=== PATIENT | male | born 1975 | race African-American/Black ===

== ENCOUNTER 2019-09-22 14:22 | Inpatient (IN) | payer BC, OTHER ==
[2019-09-22 18:56] VITALS: BMI 29.4
--- NOTE | 2019-09-22 21:17 | HP ---
"CIWA Score Nausea/Vomitin-No Nausea/No Vomiting Muscle Tremors: 4-Moderate,w/Arms Extend Anxiety: 0-No Anxiety, at Ease Agitation: 0-Normal Activity Paroxysmal Sweats: 3 (Increased facial moisture) Orientation: 0-Oriented Tacttile Disturbances: 0-None Auditory Disturbances: 0-None Visual Disturbances: 0-None Headache: 0-None Present CIWA-Ar Total Score: 7 - Admission Criteria OASAS Guidelines: Admission for Medically Managed Detox: Requires at least one of the followin. CIWA greater than 12 2. Seizures within the past 24 hours 3. Delirium tremens within the past 24 hours 4. Hallucinations within the past 24 hours 5. Acute intervention needed for co occurring medical disorder 6. Acute intervention needed for co occurring psychiatric disorder 7. Severe withdrawal that cannot be handled at a lower level of care (continued vomiting, continued diarrhea, abnormal vital signs) requiring intravenous medication and/or fluids 8. Patient presents the following: Acute intervention needed for co-occurring med or psych disorder (Bipolar-1; Schizo-affective; Depression. NICOLE: 0.024) Admission Criteria Met: Admission criteria met Admitting History and Physical - Smoking History Smoking history: Current every day smoker Have you smoked in the past 12 months: Yes Aproximately how many cigarettes per day: 20 - Alcohol/Substance Use Hx Alcohol Use: Yes (3-4 pint Vodka daily and two six packs of beer daily) Admission ROS S - HPI Chief Complaint: States wants to stop using. Allergies/Adverse Reactions: Allergies Allergy/AdvReac Type Severity Reaction Status Date / Time codeine [Codeine] Allergy Severe Hives Verified 01/12/15 13:03 risperidone [From Risperdal] Allergy Severe Swelling Verified 01/12/15 13:03 trazodone AdvReac Severe priapism Verified 01/12/15 13:03 History of Present Illness: 43 yo presents w/ alcohol withdrawal seeking detox. UTox:+ EMELYN/BZO/FEN NICOLE: 0.024 Denies seizures, blackouts, or overdoses. BASED ON ASSESSMENT, PATIENT NEEDS MORE THAN 2 NIGHTS TREATMENT. Alcohol use began at age 14. Drinks 2 pints vodka daily in last 1-2 weeks. Before that was drinking but was drinking less vodka and more beer. Opioid use once / month. Nasal. No Narcan kit at home. Cocaine use began at age 33. Currently smokes $20. Denies benzo use. Thinks may have been cut w/ the cocaine use. Nicotine use began at age 14. Currently smokes 1 PPD PMHx: GERD; MHHx: Bipolar-1; Schizo-affective; Depression. Pressured speech. States just move back to [place], from [place]. No current Psychiatrist. States saw Psych at [facility] on 09/11/2019 and was given prescriptions. Denies thought of harming self or others. SHx: Homeless. Unemployed. Denies legal issues. Search Terms: Eliezer Andrea, 1975 Search Date: 09/22/2019 09:12:02 PM The Drug Utilization Report below displays all of the controlled substance prescriptions, if any, that your patient has filled in the last twelve months. The information displayed on this report is compiled from pharmacy submissions to the Department, and accurately reflects the information as submitted by the pharmacies. This report was requested by: Ana Paula Irizarry | Reference #: [id number] There are no results for the search terms that you entered. Exam Limitations: No Limitations - Ebola screening Have you traveled outside of the country in the last 21 days: No Have you had contact with anyone from an Ebola affected area: No Have you been sick,other than usual withdrawal symptoms: No Do you have a fever: No - Review of Systems Constitutional: Chills, Changes in sleep (Difficulty falling and staying asleep) EENT: reports: No Symptoms Reported Respiratory: reports: No Symptoms reported Cardiac: reports: No Symptoms Reported GI: reports: Indigestion (Occ indigestion - takes protonix 40 mg) : reports: Other (3-4x/night urination) Musculoskeletal: reports: No Symptoms Reported Integumentary: reports: No Symptoms Reported Neuro: reports: Tremors Endocrine: reports: Increased Thirst Hematology: reports: No Symptoms Reported Psychiatric: reports: Orientated x3, Depressed ( Denies thought of harming self or others.), other (Sleepy) Patient History - Patient Medical History Hx Anemia: No Hx Asthma: No Hx Chronic Obstructive Pulmonary Disease (COPD): No Hx Cancer: No Hx Cardiac Disorders: No Hx Congestive Heart Failure: No Hx Hypertension: No Hx Hypercholesterolemia: No Hx Pacemaker: No HX Cerebrovascular Accident: No Hx Seizures: No Hx Dementia: No Hx Diabetes: No Hx Gastrointestinal Disorders: Yes (GERD) Hx Liver Disease: No Hx Genitourinary Disorders: No Hx Sexually Transmitted Disorders: No Hx Renal Disease (ESRD): No Hx Thyroid Disease: No Hx Human Immunodeficiency Virus (HIV): No Hx Hepatitis C: No Hx Depression: No Hx Suicide Attempt: No Hx Bipolar Disorder: Yes Hx Schizophrenia: No - Patient Surgical History Past Surgical History: Yes Hx Neurologic Surgery: No Hx Cataract Extraction: No Hx Cardiac Surgery: No Hx Lung Surgery: No Hx Breast Surgery: No Hx Breast Biopsy: No Hx Abdominal Surgery: No Hx Appendectomy: No Hx Cholecystectomy: No Hx Genitourinary Surgery: No Hx Section: No Hx Orthopedic Surgery: Yes (FX left arm at 9yo) Anesthesia Reaction: No - PPD History Previous Implant?: Yes Documented Results: Negative w/proof Implanted On Prior R Admission?: Yes PPD to be Administered?: Yes - Smoking Cessation Smoking history: Current every day smoker Have you smoked in the past 12 months: Yes Aproximately how many cigarettes per day: 20 Hx Chewing Tobacco Use: No Initiated information on smoking cessation: Yes 'Breaking Loose' booklet given: 09/22/19 - Substance & Tx. History Hx Alcohol Use: Yes Hx Substance Use: Yes Substance Use Type: Alcohol, Cocaine, Opiates (Fentanyl) Hx Substance Use Treatment: Yes (detox, rehabs) - Substances abused Alcohol Substance route: Oral Frequency: Daily Amount used: 1 beer /2 pints of vodka Age of first use: 14 Date of last use: 09/22/19 Cocaine Substance route: Inhalation Frequency: Daily Amount used: 100 dollars Age of first use: 32 Date of last use: 09/21/19 Admission Physical Exam BHS - Vital Signs Vital Signs: Vital Signs - 24 hr 09/22/19 09/22/19 18:36 19:15 Temperature 98.0 F 98.0 F Pulse Rate 83 83 Respiratory 14 14 Rate Blood Pressure 132/76 132/76 - Physical General Appearance: Yes: Nourished, Alcohol on Breath (nicole: 0.024), Sweating ( Increased facial moisture) HEENTM: Yes: EOMI, Hearing grossly Normal, Normocephalic, Normal Voice, BRAD ( Pupils = 1 mm), Pharynx Normal Respiratory: Yes: Lungs Clear, Normal Breath Sounds, No Respiratory Distress Neck: Yes: No masses,lesions,Nodules, Supple Breast: Yes: Breast Exam Deferred Cardiology: Yes: Regular Rhythm, Regular Rate, S1, S2 Abdominal: Yes: Non Tender, Soft, Increased Bowel Sounds Genitourinary: Yes: Nocturia (2-3 x/night Denies burning/ pain or blood) Back: Yes: Normal Inspection Musculoskeletal: Yes: full range of Motion, Gait Steady, Other (Frank hammer toes) Extremities: Yes: Normal Capillary Refill, Pedal Edema (Frank 2+ pitting edema toes to ankle. 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 NML intact, Fully Oriented, Motor Strength 5/5, Other (Falls asleep but easily arousable.) Integumentary: Yes: Normal Color, Warm, Moist (Increased facial moisture) Lymphatic: Yes: Within Normal Limits - Diagnostic (1) Alcohol dependence with withdrawal, uncomplicated Current Visit: Yes Status: Acute (2) Cocaine dependence Current Visit: Yes Status: Chronic (3) GERD (gastroesophageal reflux disease) Current Visit: Yes Status: Chronic Qualifiers: Esophagitis presence: without esophagitis Qualified Code(s): K21.9 - Gastro -esophageal reflux disease without esophagitis (4) Nicotine dependence Current Visit: Yes Status: Chronic Qualifiers: Nicotine product type: cigarettes Substance use status: uncomplicated Qualified Code(s): F17.210 - Nicotine dependence, cigarettes, uncomplicated Cleared for Admission S - Detox or Rehab [facility] Level of Care: Medically Managed Detox Regimen/Protocol: Librium Claeared for Rehab Admission: No Breathalyzer - Breathalyzer Breathalyzer: 0.024 Urine Drug Screen - Test Device Lot number: [id number] Expiration date: 07/16/21 - Control Is test valid?: Yes - Results Drug screen NEGATIVE: No Urine drug screen results: EMELYN-Cocaine, FEN-Fentanyl, BZO-Benzodiazepines Inpatient Rehab Admission - Rehab Decision to Admit Inpatient rehab admission?: No"
[2019-09-23] MEDS ORDERED: chlordiazePOXIDE HCL 10 MG CAPSULE PO PRN (05:08)
[2019-09-23] MEDS ORDERED: guaiFENesin 200 MG/10 ML 10 ML UNIT-DOSE CUPS PO PRN (05:08)
[2019-09-23] MEDS ORDERED: MELATONIN 5 MG TABLETS PO PRN (05:08)
[2019-09-23] MEDS ORDERED: BISMUTH SUBSALICYLATE 524 MG/30 ML UD PO PRN (05:08)
[2019-09-23] MEDS ORDERED: MAGNESIUM HYDROX 2400MG/30ML ORAL SUSPENSION 30 ML CUP PO PRN (05:08)
[2019-09-23] MEDS ORDERED: MAGNESIUM CITRATE 300 ML BOTTLE PO PRN (05:08)
[2019-09-23] MEDS ORDERED: MENTHOL/PHENOL 1 EACH UD MM PRN (05:08)
[2019-09-23] MEDS ORDERED: ACETAMINOPHEN 325 MG TABLET (FP) PO PRN ×2 (05:08)
[2019-09-23] MEDS ORDERED: MAG HYDROX/AL HYDROX/SIMETH 30 ML UNIT-DOSE CUP PO PRN (05:08)
[2019-09-23] MEDS ORDERED: NICOTINE POLACRILEX 2 MG GUM BUC PRN (05:08)
[2019-09-23] MEDS ORDERED: IBUPROFEN 400 MG TABLET (FP) PO PRN (05:08)
[2019-09-23] MEDS: chlordiazePOXIDE HCL 25 MG CAPSULE PO SCH ×3 (06:26→22:34)
[2019-09-23] MEDS: PRENATAL VITAMINS W/ FOLIC ACID TABLET (FP) PO SCH (10:48)
[2019-09-23] MEDS: PANTOPRAZOLE 40 MG TABLET PO SCH (10:48)
[2019-09-23] MEDS: NICOTINE 14 MG/24 HOURS TOPICAL PATCH TD SCH (10:49)
--- NOTE | 2019-09-23 10:51 | CONSULT ---
[facility] Psychiatric Consult - Data Date of interview: 09/23/19 Admission source: [facility] Identifying data: Patient is a 43 year old single male, without children, unemployed, homeless, and is supported by [facility]. This is one of multiple admissions for patient. Patient admitted to for alcohol and cocaine dependence. Substance Abuse History: Smoking Cessation. Smoking history: Current every day smoker. Have you smoked in the past 12 months: Yes. Aproximately how many cigarettes per day: 20. Hx Chewing Tobacco Use: No. Initiated information on smoking cessation: Yes. 'Breaking Loose' booklet given: 09/22/19. - Substance & Tx. History. Hx Alcohol Use: Yes. Hx Substance Use: Yes. Substance Use Type : Alcohol, Cocaine, Opiates (Fentanyl). Hx Substance Use Treatment: Yes (detox , rehabs). - Substances abused. Alcohol. Substance route: Oral. Frequency : Daily. Amount used: 1 beer /2 pints of vodka. Age of first use: 14. Date of last use: 09/22/19. Cocaine. Substance route: Inhalation. Frequency: Daily. Amount used: 100 dollars. Age of first use: 32. Date of last use: Medical History: GERD, FX left arm at 9yo Psychiatric History: Patient's first psychiatric contact was in 1998 after onset disturbances of auditory hallucinations. He was admitted to a psychiatric facility (can't recall) and was diagnosed with Bipolar disorder. Patient denies being diagonsed with schizophrenia. Mr. Andrea is unable to provide a cohesive psychiatric history. He reports several psychiatric hospitalizations at various institutions including but not limited to [facility] and [facility]. Mr. Andrea states that he receives psychotropic medications from various emergency departments in [facility]. Claims to have received a prescription of topamax 100mg BID + Zyprexa 10mg BID + Seroquel 200mg HS last month and brought his medications to the facility. Reports most recently taking his medications two days ago. [facility] drug pharmacy contated at [phone] but pharmacy is closed on tuesday. Previous notes reviewed and noted that patient patient has been prescribed zyprexa 20mg HS. Patient denies history of suicide attempt. At present patient denies history of auditory/visual hallucinations, suicidal/ homicidal ideation. Physical/Sexual Abuse/Trauma History: Not discussed. Mental Status Exam - Mental Status Exam Alert and Oriented to: Time, Place, Person Cognitive Function: Good Patient Appearance: Well Groomed Mood: Withdrawn Affect: Flat Patient Behavior: Fatigued, Cooperative Speech Pattern: Appropriate (has a speak disability. ) Voice Loudness: Normal Thought Process: Goal Oriented Thought Disorder: Not Present Hallucinations: Denies Suicidal Ideation: Denies Homicidal Ideation: Denies Insight/Judgement: Poor Sleep: Poorly Appetite: Fair Muscle strength/Tone: Normal Gait/Station: Normal Psychiatric Findings - Problem List ([place] 1, 2,3) (1) Schizoaffective disorder Status: Chronic (2) Alcohol dependence with withdrawal, uncomplicated Status: Chronic (3) Cocaine dependence Status: Chronic (4) Nicotine dependence Status: Chronic Qualifiers: Nicotine product type: cigarettes Substance use status: uncomplicated Qualified Code(s): F17.210 - Nicotine dependence, cigarettes, uncomplicated (5) Bipolar disorder Status: Suspected - Initial Treatment Plan Initial Treatment Plan: Psychoeducation provided. Detoxification in progress. Will order Zyprexa 10mg BID + Topamax 100mg BID + Seroquel 100mg (reduced dose due to risk of oversedation). Benefits and side effects discussed. Verbal consent given.
[2019-09-23 12:12] LABS: HEMATOCRIT 38.6 % (35.4-49); HEMOGLOBIN 12.8 GM/dL (11.7-16.9); MCH 27.3 pg (25.7-33.7); MCHC 33.1 g/dl (32.0-35.9); MEAN CELL VOLUME 82.5 fl (80-96); MEAN PLT VOLUME 9.8 fl (7.5-11.1); PLATELET COUNT 216 K/MM3 (134-434); RBC 4.68 M/mm3 (4.00-5.60); RDW 15.9 % (11.9-15.9); WHITE BLOOD COUNT 4.4 K/mm3 (4.0-10.0)
[2019-09-23 12:21] LABS: ALBUMIN 3.3 g/dl (3.4-5.0); BILIRUBIN,TOTAL 0.8 mg/dL (0.2-1); BLOOD UREA NITROGEN 14.1 mg/dL (7-18); CALCIUM 8.8 mg/dL (8.5-10.1); CREATININE 0.9 mg/dL (0.55-1.3); POTASSIUM 3.5 mmol/L (3.5-5.1)
--- NOTE | 2019-09-23 21:49 | PN ---
[facility] CIWA - CIWA Score Nausea/Vomitin-No Nausea/No Vomiting Muscle Tremors: 2 Anxiety: 3 Agitation: 2 Paroxysmal Sweats: 2 Orientation: 0-Oriented Tacttile Disturbances: 2-Mild Itch/Numbness/Burn Auditory Disturbances: 0-None Visual Disturbances: 0-None Headache: 0-None Present CIWA-Ar Total Score: 11 BHS Progress Note (SOAP) Subjective: Etoh withdrawal sx Patient presents with c/o shakes, sweating, anxiety, interrupted sleep and numbness/tingling to feet Objective: 09/23/19 21:46 Laboratory Tests 09/23/19 09/23/19 09/23/19 07:20 07:20 07:20 WBC 4.4 RBC 4.68 Hgb 12.8 Hct 38.6 MCV 82.5 MCH 27.3 MCHC 33.1 RDW 15.9 Plt Count 216 D MPV 9.8 Sodium 139 Potassium 3.5 Chloride 104 Carbon Dioxide 28 Anion Gap 7 L BUN 14.1 Creatinine 0.9 Est GFR (CKD-EPI)AfAm 120.81 Est GFR (CKD-EPI)NonAf 104.24 Random Glucose 113 H Calcium 8.8 Total Bilirubin 0.8 AST 40 H ALT 51 Alkaline Phosphatase 60 Total Protein 7.0 Albumin 3.3 L RPR Titer Nonreactive Vital Signs Temperature 97.9 F 09/23/19 21:29 Pulse Rate 70 09/23/19 21:29 Respiratory Rate 18 09/23/19 21:29 Blood Pressure 115/68 09/23/19 21:29 O2 Sat by Pulse Oximetry (%) PE alert and oriented x 3 skin warm, moisture to trunk car s1s2 resp cta bl ext amb with limp due to b/l hammertoes, +tremors anxious tired Assessment: 09/23/19 21:47 ETOH withdrawal sx B/L hammertoes Plan: continue detox encourage oral fluids cane for amb support
[2019-09-23] MEDS: QUEtiapine FUMARATE 100 MG TABLET (FP) PO SCH (22:34)
[2019-09-23] MEDS: THIAMINE HCL 100 MG TABLET (FP) PO SCH (22:34)
[2019-09-23] MEDS: OLANZapine 10 MG TABLET PO SCH (22:40)
[2019-09-24] MEDS: TOPIRAMATE 100 MG TABLET PO SCH ×3 (00:08→21:26)
[2019-09-24] MEDS: chlordiazePOXIDE 5 MG CAPSULE PO SCH ×3 (06:10→21:26)
[2019-09-24] MEDS: PANTOPRAZOLE 40 MG TABLET PO SCH (10:10)
[2019-09-24] MEDS: NICOTINE 14 MG/24 HOURS TOPICAL PATCH TD SCH (10:10)
[2019-09-24] MEDS: PRENATAL VITAMINS W/ FOLIC ACID TABLET (FP) PO SCH (10:10)
--- NOTE | 2019-09-24 13:41 | PN ---
S CIWA - CIWA Score Nausea/Vomitin-No Nausea/No Vomiting Muscle Tremors: 3 Anxiety: 2 Agitation: 2 Paroxysmal Sweats: No Perspiration Orientation: 0-Oriented Tacttile Disturbances: 0-None Auditory Disturbances: 0-None Visual Disturbances: 0-None Headache: 0-None Present CIWA-Ar Total Score: 7 BHS Progress Note (SOAP) Subjective: feeling better some sweats interrupted sleep Objective: 09/24/19 13:40 Vital Signs Temperature 98.6 F 09/24/19 12:36 Pulse Rate 78 09/24/19 12:36 Respiratory Rate 09/24/19 12:36 Blood Pressure 119/69 09/24/19 12:36 O2 Sat by Pulse Oximetry (%) Laboratory Tests 09/23/19 09/23/19 09/23/19 07:20 07:20 07:20 WBC 4.4 RBC 4.68 Hgb 12.8 Hct 38.6 MCV 82.5 MCH 27.3 MCHC 33.1 RDW 15.9 Plt Count 216 D MPV 9.8 Sodium 139 Potassium 3.5 Chloride 104 Carbon Dioxide 28 Anion Gap 7 L BUN 14.1 Creatinine 0.9 Est GFR (CKD-EPI)AfAm 120.81 Est GFR (CKD-EPI)NonAf 104.24 Random Glucose 113 H Calcium 8.8 Total Bilirubin 0.8 AST 40 H ALT 51 Alkaline Phosphatase 60 Total Protein 7.0 Albumin 3.3 L RPR Titer Nonreactive labs noted aaox3 ambulating no acute distress Assessment: 09/24/19 13:41 mild withdrawals Plan: continue detox
[2019-09-24] MEDS: OLANZapine 10 MG TABLET PO SCH ×2 (14:17→21:26)
[2019-09-24] MEDS: QUEtiapine FUMARATE 100 MG TABLET (FP) PO SCH (21:26)
[2019-09-24] MEDS: THIAMINE HCL 100 MG TABLET (FP) PO SCH (21:26)
[2019-09-24 22:11] LABS: PH,URINE 8.5 (5.0-8.0); URINE APPEARANCE TURBID; URINE BILIRUBIN NEGATIVE (NEGATIVE); URINE COLOR YELLOW; URINE GLUCOSE (UA) NEGATIVE (NEGATIVE); URINE KETONE NEGATIVE (NEGATIVE); URINE LEUK ESTERASE NEGATIVE (NEGATIVE); URINE NITRITE NEGATIVE (NEGATIVE); URINE PROTEIN NEGATIVE (NEGATIVE)
[2019-09-25] MEDS ORDERED: chlordiazePOXIDE HCL 10 MG CAPSULE PO PRN
[2019-09-25] MEDS: chlordiazePOXIDE HCL 10 MG CAPSULE PO SCH ×3 (05:51→21:45)
[2019-09-25] MEDS: OLANZapine 10 MG TABLET PO SCH ×2 (10:20→21:45)
[2019-09-25] MEDS: PANTOPRAZOLE 40 MG TABLET PO SCH (10:20)
[2019-09-25] MEDS: NICOTINE 14 MG/24 HOURS TOPICAL PATCH TD SCH (10:20)
[2019-09-25] MEDS: TOPIRAMATE 100 MG TABLET PO SCH ×2 (10:20→21:45)
[2019-09-25] MEDS: PRENATAL VITAMINS W/ FOLIC ACID TABLET (FP) PO SCH (10:20)
--- NOTE | 2019-09-25 11:39 | PN ---
S CIWA - CIWA Score Nausea/Vomitin-No Nausea/No Vomiting Muscle Tremors: None Anxiety: 1-Mildly Anxious Agitation: 1-Slight > Activity Paroxysmal Sweats: No Perspiration Orientation: 0-Oriented Tacttile Disturbances: 0-None Auditory Disturbances: 0-None Visual Disturbances: 0-None Headache: 0-None Present CIWA-Ar Total Score: 2 BHS Progress Note (SOAP) Subjective: feeling better little sweats Objective: 09/25/19 11:39 Vital Signs Temperature 97.9 F 09/25/19 09:03 Pulse Rate 82 09/25/19 09:03 Respiratory Rate 17 09/25/19 09:03 Blood Pressure 116/61 09/25/19 09:03 O2 Sat by Pulse Oximetry (%) aaox3 ambulating no acute distress Assessment: 09/25/19 11:39 mild withdrawals Plan: continue detox d/c in am
--- NOTE | 2019-09-25 14:54 | EKG ---
Test Reason : Blood Pressure : / mmHG Vent. Rate : 075 BPM Atrial Rate : 075 BPM P-R Int : 160 ms QRS Dur : 096 ms QT Int : 368 ms P-R-T Axes : 031 -27 017 degrees QTc Int : 410 ms NORMAL SINUS RHYTHM NORMAL ECG NO PREVIOUS ECGS AVAILABLE Confirmed by Juan Baldwin MD ([id number]) on 09/25/2019 2:54:16 PM Referred By: Noé Reeves Confirmed By:Juan Baldwin MD
[2019-09-25] MEDS: QUEtiapine FUMARATE 100 MG TABLET (FP) PO SCH (21:45)
[2019-09-25] MEDS: THIAMINE HCL 100 MG TABLET (FP) PO SCH (21:45)
[2019-09-26] MEDS ORDERED: chlordiazePOXIDE HCL 10 MG CAPSULE PO ONE (05:00)
--- NOTE | 2019-09-26 09:36 | DS ---
[facility] Detox Discharge Summary Admission Date: 09/22/19 Discharge Date: 09/26/19 - History Present History: Alcohol Dependence, Cocaine Dependence - Physical Exam Results Vital Signs: Vital Signs Temperature 97.7 F 09/26/19 06:53 Pulse Rate 66 09/26/19 06:53 Respiratory Rate 18 09/26/19 06:53 Blood Pressure 101/65 09/26/19 06:53 O2 Sat by Pulse Oximetry (%) Pertinent Admission Physical Exam Findings: Vital Signs Temperature 97.7 F 09/26/19 06:53 Pulse Rate 66 09/26/19 06:53 Respiratory Rate 18 09/26/19 06:53 Blood Pressure 101/65 09/26/19 06:53 O2 Sat by Pulse Oximetry (%) Laboratory Tests 09/23/19 09/23/19 09/23/19 07:20 07:20 07:20 WBC 4.4 RBC 4.68 Hgb 12.8 Hct 38.6 MCV 82.5 MCH 27.3 MCHC 33.1 RDW 15.9 Plt Count 216 D MPV 9.8 Sodium 139 Potassium 3.5 Chloride 104 Carbon Dioxide 28 Anion Gap 7 L BUN 14.1 Creatinine 0.9 Est GFR (CKD-EPI)AfAm 120.81 Est GFR (CKD-EPI)NonAf 104.24 Random Glucose 113 H Calcium 8.8 Total Bilirubin 0.8 AST 40 H ALT 51 Alkaline Phosphatase 60 Total Protein 7.0 Albumin 3.3 L Urine Color Urine Appearance Urine pH Ur Specific [place] Urine Protein Urine Glucose (UA) Urine Ketones Urine Blood Urine Nitrite Urine Bilirubin Urine Urobilinogen Ur Leukocyte Esterase RPR Titer Nonreactive 09/24/19 16:28 WBC RBC Hgb Hct MCV MCH MCHC RDW Plt Count MPV Sodium Potassium Chloride Carbon Dioxide Anion Gap BUN Creatinine Est GFR (CKD-EPI)AfAm Est GFR (CKD-EPI)NonAf Random Glucose Calcium Total Bilirubin AST ALT Alkaline Phosphatase Total Protein Albumin Urine Color Yellow Urine Appearance Turbid Urine pH 8.5 H D Ur Specific [place] 1.020 Urine Protein Negative Urine Glucose (UA) Negative Urine Ketones Negative Urine Blood Negative Urine Nitrite Negative Urine Bilirubin Negative Urine Urobilinogen 1.0 Ur Leukocyte Esterase Negative RPR Titer aaox3 ambulating no acute distress lungs CTA - Treatment Hospital Course: Detox Protocol Followed, Detoxed Safely, Responded well, Discharged Condition Good, Rehab Referral Accepted - Medication Discharge Medications: Ambulatory Orders Olanzapine [Zyprexa] 10 mg PO BID 01/12/15 Quetiapine Fumarate [Seroquel -] 200 mg PO HS 09/22/19 Topiramate 100 mg PO BID 09/22/19 - Diagnosis (1) Alcohol dependence with withdrawal, uncomplicated Current Visit: Yes Status: Chronic (2) Cocaine dependence Current Visit: Yes Status: Chronic (3) GERD (gastroesophageal reflux disease) Current Visit: Yes Status: Chronic Qualifiers: Esophagitis presence: without esophagitis Qualified Code(s): K21.9 - Gastro -esophageal reflux disease without esophagitis (4) Nicotine dependence Current Visit: Yes Status: Chronic Qualifiers: Nicotine product type: cigarettes Substance use status: uncomplicated Qualified Code(s): F17.210 - Nicotine dependence, cigarettes, uncomplicated (5) Schizoaffective disorder Current Visit: Yes Status: Chronic (6) Bipolar disorder Current Visit: Yes Status: Suspected (7) Cocaine abuse Current Visit: Yes Status: Chronic (8) Bipolar disorder Current Visit: No Status: Chronic - AMA Did Patient Leave Against Medical Advice: No
[2019-09-26 10:17] VITALS: BP 120/77; PULSE 59; TEMP 98.1
[2019-09-26] MEDS: OLANZapine 10 MG TABLET PO SCH (10:26)
[2019-09-26] MEDS: PANTOPRAZOLE 40 MG TABLET PO SCH (10:26)
[2019-09-26] MEDS: NICOTINE 14 MG/24 HOURS TOPICAL PATCH TD SCH (10:26)
[2019-09-26] MEDS: PRENATAL VITAMINS W/ FOLIC ACID TABLET (FP) PO SCH (10:27)
[2019-09-26] MEDS: TOPIRAMATE 100 MG TABLET PO SCH (10:27)
== END 2019-09-26 12:37 | disposition other institution (70) | DRG 774 ==
LOC: YASAS 14:22 → Y6N 23:33
PROVIDERS: ADMIT Allergy & Immunology; ATTEND Allergy & Immunology
PROC: HZ2ZZZZ Detoxification Services for Substance Abuse Treatment (ICD-10-PCS; principal; 2019-09-22)
DX: F10.230 Alcohol dependence with withdrawal, uncomplicated (principal); F14.20 Cocaine dependence, uncomplicated; F17.210 Nicotine dependence, cigarettes, uncomplicated; F25.9 Schizoaffective disorder, unspecified; F31.9 Bipolar disorder, unspecified; K21.9 Gastro-esophageal reflux disease without esophagitis; M20.42 Other hammer toe(s) (acquired), left foot; M20.41 Other hammer toe(s) (acquired), right foot; Z88.5 Allergy status to narcotic agent; Z88.8 Allergy status to other drugs, medicaments and biological substances; Z56.0 Unemployment, unspecified; Z59.0 Homelessness
CPT/HCPCS: 36415; 80053; 81003; 85027; 86593; 93005; 93010

== ENCOUNTER 2019-09-26 12:51 | Inpatient (IN) | payer OTHER ==
--- NOTE | 2019-09-26 14:24 | HP ---
[facility] Rehab Assess/Revision - Vital signs Vital Signs: Vital Signs Period Temp Pulse Resp BP Sys/Gallardo Pulse Ox Last 24 Hr 98.2 F 88 18 116/69 Inpatient Rehab Admission - Rehab Decision to Admit Inpatient rehab admission?: Yes - Initial Determination Are CD services needed?: Yes Free of communicable disease: Yes Not in need of hospitalization: Yes - Rehab Admission Criteria Previous failed treatment: Yes Poor recovery environment: Yes Comorbidities: Yes Lacks judgement: No Patient is meeting Inpatient Rehab admission criteria:: Yes
[2019-09-26] MEDS ORDERED: MAGNESIUM HYDROX 2400MG/30ML ORAL SUSPENSION 30 ML CUP PO PRN (15:50)
[2019-09-26] MEDS ORDERED: P-EPHED 60MG/TRIPROLIDI 2.5MG TABLET PO PRN (15:50)
[2019-09-26] MEDS ORDERED: guaiFENesin 200 MG/10 ML 10 ML UNIT-DOSE CUPS PO PRN (15:50)
[2019-09-26] MEDS ORDERED: ACETAMINOPHEN 325 MG TABLET (FP) PO PRN (15:50)
[2019-09-26] MEDS ORDERED: IBUPROFEN 400 MG TABLET (FP) PO PRN (15:50)
[2019-09-26] MEDS ORDERED: MENTHOL/PHENOL 1 EACH UD MM PRN (15:50)
[2019-09-26] MEDS ORDERED: MAGNESIUM CITRATE 300 ML BOTTLE PO PRN (15:50)
[2019-09-26] MEDS ORDERED: MAG HYDROX/AL HYDROX/SIMETH 30 ML UNIT-DOSE CUP PO PRN (15:50)
[2019-09-26] MEDS: THIAMINE HCL 100 MG TABLET (FP) PO SCH (21:09)
[2019-09-26] MEDS: TOPIRAMATE 100 MG TABLET PO SCH (21:09)
[2019-09-26] MEDS: MELATONIN 5 MG TABLETS PO PRN (21:09)
[2019-09-27] MEDS: NICOTINE 14 MG/24 HOURS TOPICAL PATCH TD SCH (09:43)
[2019-09-27] MEDS: PRENATAL VITAMINS W/ FOLIC ACID TABLET (FP) PO SCH (09:43)
[2019-09-27] MEDS: TOPIRAMATE 100 MG TABLET PO SCH ×2 (09:43→21:26)
[2019-09-27] MEDS: THIAMINE HCL 100 MG TABLET (FP) PO SCH (21:26)
[2019-09-27] MEDS: MELATONIN 5 MG TABLETS PO PRN (21:27)
[2019-09-28] MEDS: TOPIRAMATE 100 MG TABLET PO SCH ×2 (09:33→21:14)
[2019-09-28] MEDS: PRENATAL VITAMINS W/ FOLIC ACID TABLET (FP) PO SCH (09:33)
[2019-09-28] MEDS: OLANZapine 10 MG TABLET PO SCH ×2 (09:34→21:14)
[2019-09-28] MEDS: NICOTINE 14 MG/24 HOURS TOPICAL PATCH TD SCH (10:09)
[2019-09-28] MEDS ORDERED: PANTOPRAZOLE 40 MG TABLET PO ONE (12:54)
[2019-09-28] MEDS: MELATONIN 5 MG TABLETS PO PRN (21:14)
[2019-09-28] MEDS: THIAMINE HCL 100 MG TABLET (FP) PO SCH (21:14)
[2019-09-28] MEDS: QUEtiapine FUMARATE 100 MG TABLET (FP) PO SCH (21:15)
[2019-09-29] MEDS: TOPIRAMATE 100 MG TABLET PO SCH ×2 (09:40→21:27)
[2019-09-29] MEDS: PANTOPRAZOLE 40 MG TABLET PO SCH (09:40)
[2019-09-29] MEDS: NICOTINE 14 MG/24 HOURS TOPICAL PATCH TD SCH (09:40)
[2019-09-29] MEDS: OLANZapine 10 MG TABLET PO SCH ×2 (09:40→21:27)
[2019-09-29] MEDS: PRENATAL VITAMINS W/ FOLIC ACID TABLET (FP) PO SCH (09:40)
[2019-09-29] MEDS: MELATONIN 5 MG TABLETS PO PRN (21:27)
[2019-09-29] MEDS: THIAMINE HCL 100 MG TABLET (FP) PO SCH (21:27)
[2019-09-29] MEDS: QUEtiapine FUMARATE 100 MG TABLET (FP) PO SCH (21:27)
[2019-09-30] MEDS: PANTOPRAZOLE 40 MG TABLET PO SCH (09:45)
[2019-09-30] MEDS: NICOTINE 14 MG/24 HOURS TOPICAL PATCH TD SCH (09:45)
[2019-09-30] MEDS: PRENATAL VITAMINS W/ FOLIC ACID TABLET (FP) PO SCH (09:45)
[2019-09-30] MEDS: NICOTINE POLACRILEX 2 MG GUM BUC PRN ×2 (09:45→21:16)
[2019-09-30] MEDS: TOPIRAMATE 100 MG TABLET PO SCH ×2 (09:45→21:15)
[2019-09-30] MEDS: OLANZapine 10 MG TABLET PO SCH ×2 (09:45→21:15)
[2019-09-30] MEDS: MELATONIN 5 MG TABLETS PO PRN (21:15)
[2019-09-30] MEDS: THIAMINE HCL 100 MG TABLET (FP) PO SCH (21:15)
[2019-09-30] MEDS: QUEtiapine FUMARATE 100 MG TABLET (FP) PO SCH (21:16)
[2019-10-01] MEDS: NICOTINE 14 MG/24 HOURS TOPICAL PATCH TD SCH (09:50)
[2019-10-01] MEDS: TOPIRAMATE 100 MG TABLET PO SCH ×2 (09:50→21:38)
[2019-10-01] MEDS: PRENATAL VITAMINS W/ FOLIC ACID TABLET (FP) PO SCH (09:50)
[2019-10-01] MEDS: PANTOPRAZOLE 40 MG TABLET PO SCH (09:51)
[2019-10-01] MEDS: OLANZapine 10 MG TABLET PO SCH ×2 (09:51→21:38)
[2019-10-01] MEDS: NICOTINE POLACRILEX 2 MG GUM BUC PRN ×2 (09:52→21:38)
--- NOTE | 2019-10-01 12:39 | CONSULT ---
[facility] Psychiatric Consult - Data Date of interview: 10/01/19 Admission source: [facility] Identifying data: Patient is a 43 year old single male, without children, unemployed, homeless, and is supported by [facility]. This is one of multiple admissions for patient. Patient admitted to for alcohol and cocaine dependence. Substance Abuse History: Smoking Cessation. Smoking history: Current every day smoker. Have you smoked in the past 12 months: Yes. Aproximately how many cigarettes per day: 20. Hx Chewing Tobacco Use: No. Initiated information on smoking cessation: Yes. 'Breaking Loose' booklet given: 09/22/19. - Substance & Tx. History. Hx Alcohol Use: Yes. Hx Substance Use: Yes. Substance Use Type : Alcohol, Cocaine, Opiates (Fentanyl). Hx Substance Use Treatment: Yes (detox , rehabs). - Substances abused. Alcohol. Substance route: Oral. Frequency : Daily. Amount used: 1 beer /2 pints of vodka. Age of first use: 14. Date of last use: 09/22/19. Cocaine. Substance route: Inhalation. Frequency: Daily. Amount used: 100 dollars. Age of first use: 32. Date of last use: Medical History: GERD, FX left arm at 9yo Psychiatric History: Patient seen by entry writer while in detox. History remains consistent. Patient's first psychiatric contact was in 1998 after onset disturbances of auditory hallucinations. He was admitted to a psychiatric facility (can't recall) and was diagnosed with Bipolar disorder. Patient denies being diagonsed with schizophrenia. Mr. Andrea is unable to provide a cohesive psychiatric history. He reports several psychiatric hospitalizations at various institutions including but not limited to [facility] and [facility]. Mr. Andrea states that he receives psychotropic medications from various emergency departments in [facility]. Claims to have received a prescription of topamax 100mg BID + Zyprexa 10mg BID + Seroquel 200mg HS last month and brought his medications to the facility. Previous notes reviewed and noted that patient patient has been prescribed zyprexa 20mg HS. Patient denies history of suicide attempt. At present patient denies history of auditory/visual hallucinations, suicidal/homicidal ideation. Physical/Sexual Abuse/Trauma History: denies. Mental Status Exam - Mental Status Exam Alert and Oriented to: Time, Place, Person Cognitive Function: Good Patient Appearance: Well Groomed Mood: Euthymic Affect: Mood Congruent Patient Behavior: Appropriate, Cooperative Speech Pattern: Appropriate Voice Loudness: Normal Thought Process: Intact, Goal Oriented Thought Disorder: Not Present Hallucinations: Denies Suicidal Ideation: Denies Homicidal Ideation: Denies Insight/Judgement: Poor Sleep: Poorly Appetite: Fair Muscle strength/Tone: Normal Gait/Station: Normal Psychiatric Findings - Problem List ([place] 1, 2,3) (1) Alcohol use disorder Current Visit: Yes Status: Acute (2) Cocaine dependence Current Visit: Yes Status: Chronic (3) Schizoaffective disorder Current Visit: Yes Status: Chronic - Initial Treatment Plan Initial Treatment Plan: Psychoeducation provied. Rehab in progress. Will continue Zyprex 10mg BID. Will d/c Seroquel 100mg. Will order Zyprexa 20mg HS. Benefits and side effects discussed. Verbal consent given.
[2019-10-01] MEDS ORDERED: PT OWN MED DRAWER 7, Y5N ONE (18:53)
[2019-10-01] MEDS: THIAMINE HCL 100 MG TABLET (FP) PO SCH (21:37)
[2019-10-01] MEDS: MELATONIN 5 MG TABLETS PO PRN (21:38)
[2019-10-01] MEDS: QUEtiapine FUMARATE 200 MG TABLET PO SCH (21:38)
[2019-10-02] MEDS: PANTOPRAZOLE 40 MG TABLET PO SCH (09:45)
[2019-10-02] MEDS: OLANZapine 10 MG TABLET PO SCH ×2 (09:45→21:12)
[2019-10-02] MEDS: PRENATAL VITAMINS W/ FOLIC ACID TABLET (FP) PO SCH (09:45)
[2019-10-02] MEDS: TOPIRAMATE 100 MG TABLET PO SCH ×2 (09:45→21:12)
[2019-10-02] MEDS: NICOTINE POLACRILEX 2 MG GUM BUC PRN ×3 (09:46→21:12)
[2019-10-02] MEDS: NICOTINE 14 MG/24 HOURS TOPICAL PATCH TD SCH (10:42)
[2019-10-02] MEDS: MELATONIN 5 MG TABLETS PO PRN (21:12)
[2019-10-02] MEDS: QUEtiapine FUMARATE 200 MG TABLET PO SCH (21:12)
[2019-10-02] MEDS: THIAMINE HCL 100 MG TABLET (FP) PO SCH (21:12)
[2019-10-03] MEDS: PANTOPRAZOLE 40 MG TABLET PO SCH (09:38)
[2019-10-03] MEDS: PRENATAL VITAMINS W/ FOLIC ACID TABLET (FP) PO SCH (09:38)
[2019-10-03] MEDS: OLANZapine 10 MG TABLET PO SCH ×2 (09:39→21:30)
[2019-10-03] MEDS: TOPIRAMATE 100 MG TABLET PO SCH ×2 (09:39→21:30)
[2019-10-03] MEDS: NICOTINE 14 MG/24 HOURS TOPICAL PATCH TD SCH (09:39)
[2019-10-03] MEDS: NICOTINE POLACRILEX 2 MG GUM BUC PRN ×4 (09:40→22:00)
[2019-10-03] MEDS: THIAMINE HCL 100 MG TABLET (FP) PO SCH (21:30)
[2019-10-03] MEDS: QUEtiapine FUMARATE 200 MG TABLET PO SCH (21:30)
[2019-10-03] MEDS: MELATONIN 5 MG TABLETS PO PRN (21:30)
[2019-10-04] MEDS: PANTOPRAZOLE 40 MG TABLET PO SCH (09:33)
[2019-10-04] MEDS: OLANZapine 10 MG TABLET PO SCH ×2 (09:33→21:14)
[2019-10-04] MEDS: PRENATAL VITAMINS W/ FOLIC ACID TABLET (FP) PO SCH (09:33)
[2019-10-04] MEDS: NICOTINE 14 MG/24 HOURS TOPICAL PATCH TD SCH (09:34)
[2019-10-04] MEDS: NICOTINE POLACRILEX 2 MG GUM BUC PRN ×5 (09:34→21:14)
[2019-10-04] MEDS: TOPIRAMATE 100 MG TABLET PO SCH ×2 (09:34→21:13)
[2019-10-04] MEDS: QUEtiapine FUMARATE 200 MG TABLET PO SCH (21:13)
[2019-10-04] MEDS: THIAMINE HCL 100 MG TABLET (FP) PO SCH (21:13)
[2019-10-04] MEDS: MELATONIN 5 MG TABLETS PO PRN (21:13)
[2019-10-05] MEDS: TOPIRAMATE 100 MG TABLET PO SCH ×2 (09:40→21:30)
[2019-10-05] MEDS: PRENATAL VITAMINS W/ FOLIC ACID TABLET (FP) PO SCH (09:40)
[2019-10-05] MEDS: PANTOPRAZOLE 40 MG TABLET PO SCH (09:40)
[2019-10-05] MEDS: OLANZapine 10 MG TABLET PO SCH ×2 (09:40→21:30)
[2019-10-05] MEDS: NICOTINE 14 MG/24 HOURS TOPICAL PATCH TD SCH (09:41)
[2019-10-05] MEDS: NICOTINE POLACRILEX 2 MG GUM BUC PRN ×4 (09:42→21:31)
--- NOTE | 2019-10-05 09:54 | PN ---
[facility] Progress Note Note: Patient presents with numbness and tingling to feet. States he was treated with Gabapentin in past and requesting to restart medication. Vital Signs (72 hours) 10/03/19 10/04/19 10/04/19 06:44 00:25 03:31 Temperature 97.7 F Pulse Rate 67 Respiratory 18 18 18 Rate Blood Pressure 128/72 10/04/19 10/05/19 10/05/19 06:48 00:20 03:27 Temperature 97.9 F Pulse Rate 68 Respiratory 18 18 18 Rate Blood Pressure 123/73 10/05/19 07:13 Temperature 97.6 F Pulse Rate 69 Respiratory 18 Rate Blood Pressure 114/70 PE alert and oriented x 3 skin warm and dry +perrla eoms intact bl ext trace pedal edema, +hammertoes b/l amb independently A/P peripheral neuropathic pain will start gabapentin 100mg tid monitor clinically
[2019-10-05] MEDS: GABAPENTIN 100 MG CAPSULE PO SCH ×2 (13:10→21:30)
[2019-10-05] MEDS ORDERED: PT OWN MED DRAWER 7, Y5N ONE (18:37)
[2019-10-05] MEDS: THIAMINE HCL 100 MG TABLET (FP) PO SCH (21:30)
[2019-10-05] MEDS: MELATONIN 5 MG TABLETS PO PRN (21:30)
[2019-10-05] MEDS: QUEtiapine FUMARATE 200 MG TABLET PO SCH (21:30)
[2019-10-06] MEDS: GABAPENTIN 100 MG CAPSULE PO SCH ×3 (06:02→21:15)
[2019-10-06] MEDS: NICOTINE POLACRILEX 2 MG GUM BUC PRN ×3 (06:04→21:20)
[2019-10-06] MEDS: PRENATAL VITAMINS W/ FOLIC ACID TABLET (FP) PO SCH (09:43)
[2019-10-06] MEDS: PANTOPRAZOLE 40 MG TABLET PO SCH (09:44)
[2019-10-06] MEDS ORDERED: PT OWN MED DRAWER 7, Y5N ONE ×2 (09:45→19:40)
[2019-10-06] MEDS: TOPIRAMATE 100 MG TABLET PO SCH ×2 (09:45→21:15)
[2019-10-06] MEDS: NICOTINE 14 MG/24 HOURS TOPICAL PATCH TD SCH (09:46)
[2019-10-06] MEDS: OLANZapine 10 MG TABLET PO SCH ×2 (09:46→21:15)
[2019-10-06] MEDS: THIAMINE HCL 100 MG TABLET (FP) PO SCH (21:15)
[2019-10-06] MEDS: QUEtiapine FUMARATE 200 MG TABLET PO SCH (21:15)
[2019-10-06] MEDS: MELATONIN 5 MG TABLETS PO PRN (21:16)
[2019-10-07] MEDS: GABAPENTIN 100 MG CAPSULE PO SCH ×3 (06:08→21:35)
[2019-10-07] MEDS: NICOTINE POLACRILEX 2 MG GUM BUC PRN ×4 (06:37→16:28)
[2019-10-07] MEDS ORDERED: PT OWN MED DRAWER 7, Y5N ONE ×2 (08:22→19:39)
[2019-10-07] MEDS: PRENATAL VITAMINS W/ FOLIC ACID TABLET (FP) PO SCH (09:34)
[2019-10-07] MEDS: PANTOPRAZOLE 40 MG TABLET PO SCH (09:34)
[2019-10-07] MEDS: TOPIRAMATE 100 MG TABLET PO SCH ×2 (09:34→21:35)
[2019-10-07] MEDS: OLANZapine 10 MG TABLET PO SCH ×2 (09:34→21:35)
[2019-10-07] MEDS: NICOTINE 14 MG/24 HOURS TOPICAL PATCH TD SCH (09:34)
[2019-10-07] MEDS: QUEtiapine FUMARATE 200 MG TABLET PO SCH (21:35)
[2019-10-07] MEDS: THIAMINE HCL 100 MG TABLET (FP) PO SCH (21:35)
[2019-10-07] MEDS: MELATONIN 5 MG TABLETS PO PRN (21:36)
[2019-10-08] MEDS: GABAPENTIN 100 MG CAPSULE PO SCH ×3 (06:17→21:04)
[2019-10-08] MEDS: NICOTINE POLACRILEX 2 MG GUM BUC PRN ×4 (06:18→21:04)
[2019-10-08] MEDS ORDERED: PT OWN MED DRAWER 7, Y5N ONE (08:40)
[2019-10-08] MEDS: OLANZapine 10 MG TABLET PO SCH ×2 (09:36→21:03)
[2019-10-08] MEDS: PANTOPRAZOLE 40 MG TABLET PO SCH (09:36)
[2019-10-08] MEDS: TOPIRAMATE 100 MG TABLET PO SCH ×2 (09:36→21:03)
[2019-10-08] MEDS: PRENATAL VITAMINS W/ FOLIC ACID TABLET (FP) PO SCH (09:36)
--- NOTE | 2019-10-08 09:48 | PN ---
[facility] Progress Note Note: Pt requesting increase of neurotin- to 200mg TID says he has pain of both legs and feet> done
[2019-10-08] MEDS: NICOTINE 14 MG/24 HOURS TOPICAL PATCH TD SCH (10:05)
[2019-10-08] MEDS: MELATONIN 5 MG TABLETS PO PRN (21:03)
[2019-10-08] MEDS: THIAMINE HCL 100 MG TABLET (FP) PO SCH (21:03)
[2019-10-08] MEDS: QUEtiapine FUMARATE 200 MG TABLET PO SCH (21:04)
[2019-10-09] MEDS: GABAPENTIN 100 MG CAPSULE PO SCH ×3 (05:58→21:26)
[2019-10-09] MEDS: OLANZapine 10 MG TABLET PO SCH ×2 (09:26→21:26)
[2019-10-09] MEDS: PRENATAL VITAMINS W/ FOLIC ACID TABLET (FP) PO SCH (09:26)
[2019-10-09] MEDS: TOPIRAMATE 100 MG TABLET PO SCH ×2 (09:27→21:26)
[2019-10-09] MEDS: NICOTINE 14 MG/24 HOURS TOPICAL PATCH TD SCH (09:27)
[2019-10-09] MEDS: NICOTINE POLACRILEX 2 MG GUM BUC PRN ×4 (09:27→21:27)
[2019-10-09] MEDS: PANTOPRAZOLE 40 MG TABLET PO SCH (09:27)
[2019-10-09] MEDS ORDERED: KETOCONAZOLE 2 % SHAMPOO 120 ML BOTTLE TP ONE (12:37)
[2019-10-09] MEDS ORDERED: COLLOIDAL OATMEAL 1 BAR EACH TP PRN (14:34)
[2019-10-09] MEDS: MELATONIN 5 MG TABLETS PO PRN (21:26)
[2019-10-09] MEDS: THIAMINE HCL 100 MG TABLET (FP) PO SCH (21:26)
[2019-10-09] MEDS: QUEtiapine FUMARATE 200 MG TABLET PO SCH (21:26)
[2019-10-09] MEDS: DOCUSATE SODIUM 100 MG CAPSULE (FP) PO SCH (21:27)
[2019-10-10] MEDS: GABAPENTIN 100 MG CAPSULE PO SCH ×3 (05:54→21:07)
[2019-10-10] MEDS: NICOTINE POLACRILEX 2 MG GUM BUC PRN ×5 (05:55→21:09)
[2019-10-10] MEDS: PANTOPRAZOLE 40 MG TABLET PO SCH (09:31)
[2019-10-10] MEDS: TOPIRAMATE 100 MG TABLET PO SCH ×2 (09:31→21:07)
[2019-10-10] MEDS: NICOTINE 14 MG/24 HOURS TOPICAL PATCH TD SCH (09:31)
[2019-10-10] MEDS: PRENATAL VITAMINS W/ FOLIC ACID TABLET (FP) PO SCH (09:31)
[2019-10-10] MEDS: OLANZapine 10 MG TABLET PO SCH ×2 (09:31→21:08)
[2019-10-10] MEDS ORDERED: SELENIUM SULFIDE 2.25% 180 ML SHAMPOO TP SCH (10:00)
[2019-10-10] MEDS: THIAMINE HCL 100 MG TABLET (FP) PO SCH (21:07)
[2019-10-10] MEDS: MELATONIN 5 MG TABLETS PO PRN (21:07)
[2019-10-10] MEDS: QUEtiapine FUMARATE 200 MG TABLET PO SCH (21:07)
[2019-10-10] MEDS: DOCUSATE SODIUM 100 MG CAPSULE (FP) PO SCH (21:07)
[2019-10-11] MEDS: GABAPENTIN 100 MG CAPSULE PO SCH ×3 (06:17→21:53)
[2019-10-11] MEDS: NICOTINE POLACRILEX 2 MG GUM BUC PRN ×3 (06:18→14:10)
[2019-10-11] MEDS: OLANZapine 10 MG TABLET PO SCH ×2 (09:37→21:53)
[2019-10-11] MEDS: PANTOPRAZOLE 40 MG TABLET PO SCH (09:37)
[2019-10-11] MEDS: TOPIRAMATE 100 MG TABLET PO SCH ×2 (09:37→21:55)
[2019-10-11] MEDS: PRENATAL VITAMINS W/ FOLIC ACID TABLET (FP) PO SCH (09:37)
[2019-10-11] MEDS: NICOTINE 14 MG/24 HOURS TOPICAL PATCH TD SCH (09:38)
[2019-10-11] MEDS: hydrOXYzine PAMOATE 50 MG CAPSULE (FP) PO PRN (21:52)
[2019-10-11] MEDS: MELATONIN 5 MG TABLETS PO PRN (21:53)
[2019-10-11] MEDS: DOCUSATE SODIUM 100 MG CAPSULE (FP) PO SCH (21:53)
[2019-10-11] MEDS: QUEtiapine FUMARATE 200 MG TABLET PO SCH (21:53)
[2019-10-11] MEDS: THIAMINE HCL 100 MG TABLET (FP) PO SCH (21:54)
[2019-10-11] MEDS: LOPERAMIDE HCL 2 MG CAPSULE PO PRN (22:03)
[2019-10-12] MEDS: GABAPENTIN 100 MG CAPSULE PO SCH ×3 (06:14→21:03)
[2019-10-12] MEDS: NICOTINE POLACRILEX 2 MG GUM BUC PRN ×5 (06:15→21:05)
[2019-10-12] MEDS: PRENATAL VITAMINS W/ FOLIC ACID TABLET (FP) PO SCH (09:42)
[2019-10-12] MEDS: TOPIRAMATE 100 MG TABLET PO SCH ×2 (09:42→21:03)
[2019-10-12] MEDS: OLANZapine 10 MG TABLET PO SCH ×2 (09:42→21:03)
[2019-10-12] MEDS: NICOTINE 14 MG/24 HOURS TOPICAL PATCH TD SCH (09:43)
[2019-10-12] MEDS: PANTOPRAZOLE 40 MG TABLET PO SCH (09:43)
[2019-10-12] MEDS: MELATONIN 5 MG TABLETS PO PRN (21:03)
[2019-10-12] MEDS: QUEtiapine FUMARATE 200 MG TABLET PO SCH (21:03)
[2019-10-12] MEDS: THIAMINE HCL 100 MG TABLET (FP) PO SCH (21:03)
[2019-10-12] MEDS: DOCUSATE SODIUM 100 MG CAPSULE (FP) PO SCH (21:04)
[2019-10-13] MEDS: GABAPENTIN 100 MG CAPSULE PO SCH ×3 (06:22→21:31)
[2019-10-13] MEDS: NICOTINE POLACRILEX 2 MG GUM BUC PRN ×5 (06:22→21:32)
[2019-10-13] MEDS: TOPIRAMATE 100 MG TABLET PO SCH ×2 (09:48→21:31)
[2019-10-13] MEDS: NICOTINE 14 MG/24 HOURS TOPICAL PATCH TD SCH (09:48)
[2019-10-13] MEDS: OLANZapine 10 MG TABLET PO SCH ×2 (09:48→21:31)
[2019-10-13] MEDS: PANTOPRAZOLE 40 MG TABLET PO SCH (09:48)
[2019-10-13] MEDS: PRENATAL VITAMINS W/ FOLIC ACID TABLET (FP) PO SCH (09:48)
[2019-10-13] MEDS: QUEtiapine FUMARATE 200 MG TABLET PO SCH (21:31)
[2019-10-13] MEDS: THIAMINE HCL 100 MG TABLET (FP) PO SCH (21:31)
[2019-10-13] MEDS: MELATONIN 5 MG TABLETS PO PRN (21:31)
[2019-10-13] MEDS: DOCUSATE SODIUM 100 MG CAPSULE (FP) PO SCH (21:32)
[2019-10-14] MEDS: GABAPENTIN 100 MG CAPSULE PO SCH ×3 (06:10→21:08)
[2019-10-14] MEDS: NICOTINE POLACRILEX 2 MG GUM BUC PRN ×5 (06:11→21:10)
[2019-10-14] MEDS: OLANZapine 10 MG TABLET PO SCH ×2 (09:36→21:08)
[2019-10-14] MEDS: PANTOPRAZOLE 40 MG TABLET PO SCH (09:36)
[2019-10-14] MEDS: NICOTINE 14 MG/24 HOURS TOPICAL PATCH TD SCH (09:36)
[2019-10-14] MEDS: TOPIRAMATE 100 MG TABLET PO SCH ×2 (09:36→21:09)
[2019-10-14] MEDS: PRENATAL VITAMINS W/ FOLIC ACID TABLET (FP) PO SCH (09:36)
[2019-10-14] MEDS: hydrOXYzine PAMOATE 50 MG CAPSULE (FP) PO PRN (13:39)
[2019-10-14] MEDS: MELATONIN 5 MG TABLETS PO PRN (21:08)
[2019-10-14] MEDS: QUEtiapine FUMARATE 200 MG TABLET PO SCH (21:08)
[2019-10-14] MEDS: DOCUSATE SODIUM 100 MG CAPSULE (FP) PO SCH (21:08)
[2019-10-14] MEDS: THIAMINE HCL 100 MG TABLET (FP) PO SCH (21:08)
[2019-10-15] MEDS: GABAPENTIN 100 MG CAPSULE PO SCH ×3 (06:09→22:06)
[2019-10-15] MEDS: NICOTINE POLACRILEX 2 MG GUM BUC PRN ×4 (06:09→17:57)
[2019-10-15] MEDS: TOPIRAMATE 100 MG TABLET PO SCH ×2 (09:35→22:06)
[2019-10-15] MEDS: PANTOPRAZOLE 40 MG TABLET PO SCH (09:35)
[2019-10-15] MEDS: OLANZapine 10 MG TABLET PO SCH ×2 (09:35→22:06)
[2019-10-15] MEDS: PRENATAL VITAMINS W/ FOLIC ACID TABLET (FP) PO SCH (09:35)
[2019-10-15] MEDS: NICOTINE 14 MG/24 HOURS TOPICAL PATCH TD SCH (09:36)
[2019-10-15] MEDS: hydrOXYzine PAMOATE 50 MG CAPSULE (FP) PO PRN (19:09)
[2019-10-15] MEDS: QUEtiapine FUMARATE 200 MG TABLET PO SCH (22:05)
[2019-10-15] MEDS: DOCUSATE SODIUM 100 MG CAPSULE (FP) PO SCH (22:05)
[2019-10-15] MEDS: THIAMINE HCL 100 MG TABLET (FP) PO SCH (22:06)
[2019-10-15] MEDS: MELATONIN 5 MG TABLETS PO PRN (22:23)
[2019-10-15] MEDS: LOPERAMIDE HCL 2 MG CAPSULE PO PRN (22:24)
[2019-10-16] MEDS: GABAPENTIN 100 MG CAPSULE PO SCH ×3 (06:39→21:09)
[2019-10-16] MEDS: NICOTINE POLACRILEX 2 MG GUM BUC PRN ×3 (07:19→14:10)
[2019-10-16] MEDS: PRENATAL VITAMINS W/ FOLIC ACID TABLET (FP) PO SCH (09:59)
[2019-10-16] MEDS: NICOTINE 14 MG/24 HOURS TOPICAL PATCH TD SCH (09:59)
[2019-10-16] MEDS: TOPIRAMATE 100 MG TABLET PO SCH ×2 (09:59→21:10)
[2019-10-16] MEDS: PANTOPRAZOLE 40 MG TABLET PO SCH (09:59)
[2019-10-16] MEDS: OLANZapine 10 MG TABLET PO SCH ×2 (09:59→21:10)
[2019-10-16] MEDS: THIAMINE HCL 100 MG TABLET (FP) PO SCH (21:09)
[2019-10-16] MEDS: MELATONIN 5 MG TABLETS PO PRN (21:09)
[2019-10-16] MEDS: QUEtiapine FUMARATE 200 MG TABLET PO SCH (21:10)
[2019-10-16] MEDS: DOCUSATE SODIUM 100 MG CAPSULE (FP) PO SCH (21:10)
[2019-10-17] MEDS: GABAPENTIN 100 MG CAPSULE PO SCH ×3 (06:01→21:33)
[2019-10-17] MEDS: NICOTINE POLACRILEX 2 MG GUM BUC PRN ×3 (06:01→14:00)
[2019-10-17] MEDS: TOPIRAMATE 100 MG TABLET PO SCH ×2 (09:39→21:33)
[2019-10-17] MEDS: OLANZapine 10 MG TABLET PO SCH ×2 (09:40→21:33)
[2019-10-17] MEDS: PANTOPRAZOLE 40 MG TABLET PO SCH (09:40)
[2019-10-17] MEDS: PRENATAL VITAMINS W/ FOLIC ACID TABLET (FP) PO SCH (09:40)
[2019-10-17] MEDS: hydrOXYzine PAMOATE 50 MG CAPSULE (FP) PO PRN (09:42)
[2019-10-17] MEDS: NICOTINE 14 MG/24 HOURS TOPICAL PATCH TD SCH (10:53)
[2019-10-17] MEDS: THIAMINE HCL 100 MG TABLET (FP) PO SCH (21:33)
[2019-10-17] MEDS: QUEtiapine FUMARATE 200 MG TABLET PO SCH (21:33)
[2019-10-17] MEDS: DOCUSATE SODIUM 100 MG CAPSULE (FP) PO SCH (21:33)
[2019-10-17] MEDS: MELATONIN 5 MG TABLETS PO PRN (21:33)
[2019-10-18] MEDS: GABAPENTIN 100 MG CAPSULE PO SCH ×3 (06:11→21:06)
[2019-10-18] MEDS: NICOTINE POLACRILEX 2 MG GUM BUC PRN ×3 (06:11→13:39)
[2019-10-18] MEDS ORDERED: PT OWN MED DRAWER 7, Y5N ONE ×2 (06:12→09:02)
[2019-10-18] MEDS: TOPIRAMATE 100 MG TABLET PO SCH ×2 (10:29→21:06)
[2019-10-18] MEDS: PRENATAL VITAMINS W/ FOLIC ACID TABLET (FP) PO SCH (10:29)
[2019-10-18] MEDS: NICOTINE 14 MG/24 HOURS TOPICAL PATCH TD SCH (10:29)
[2019-10-18] MEDS: PANTOPRAZOLE 40 MG TABLET PO SCH (10:29)
[2019-10-18] MEDS: OLANZapine 10 MG TABLET PO SCH ×2 (10:29→21:06)
--- NOTE | 2019-10-18 10:31 | PN ---
S Progress Note (SOAP) Subjective: Patient to be discharged tomorrow. PMHx: 43 yo her for ETOH rehab after completing detox here. Denies seizures, blackouts, or overdoses. Alcohol use began at age 14. D Opioid use once / month. Nasal. Cocaine use began at age 33. Currently smokes $20. Nicotine use began at age 14. Currently smokes 1 PPD PMHx: GERD; MHHx: Bipolar-1; Schizo-affective; Denies thought of harming self or others. HOSPITAL COURSE: Patient attended groups, had 1:1 with his counselor and was seen by the psychiatric service. He was treated with gabapentin for tingling and numbness in lower extremities. No further complaints. He was adherent to his medication regimen and treatment plan. Objective: 10/18/19 10:34 Vital Signs Period Temp Pulse Resp BP Sys/Gallardo Pulse Ox Last 24 Hr 97.6 F 75 18-18 118/74 P/E: general: no apparent distress HEENTM: normocephalic, PERRLA Neck: supple Lungs: clear Heart: s1 s2 ABD: +BS MSK: weight bearing with assistance of cane, unsteady gait (duck waddle gait). Extremities: Some trace edema lower extremities Assessment: ETOH use Cocaine use Medically stable for discharge 10/18/19 10:36 Plan: Patient to be discharged to [facility]. He will continue with substance use treatment at [facility] He has an appointment with a primary care provider on 10/26 at [facility]. Encouraged to continue with healthy diet and activity as tolerated.
--- NOTE | 2019-10-18 15:23 | PN ---
[facility] Progress Note Note: Psychiatric nurse pratitioner note: Patient scheduled for discharge tomorrow. A 30 day prescription of Zyprexa 10mg BID + Seroquel 200mg HS + Topamax 100mg BID was electronically sent to [facility], th, [address] [place] [address].
[2019-10-18] MEDS: THIAMINE HCL 100 MG TABLET (FP) PO SCH (21:06)
[2019-10-18] MEDS: MELATONIN 5 MG TABLETS PO PRN (21:06)
[2019-10-18] MEDS: QUEtiapine FUMARATE 200 MG TABLET PO SCH (21:06)
[2019-10-18] MEDS: DOCUSATE SODIUM 100 MG CAPSULE (FP) PO SCH (21:06)
[2019-10-19] MEDS: GABAPENTIN 100 MG CAPSULE PO SCH (06:15)
[2019-10-19 07:08] VITALS: BP 138/84; PULSE 79; TEMP 97.8
== END 2019-10-19 07:10 | disposition home or self-care (01) | DRG 772 ==
LOC: YASAS 12:51 → Y3W 12:52
PROVIDERS: ADMIT Allergy & Immunology; ATTEND Allergy & Immunology
PROC: HZ42ZZZ Group Counseling for Substance Abuse Treatment, Cognitive-Behavioral (ICD-10-PCS; principal; 2019-09-26)
DX: F10.20 Alcohol dependence, uncomplicated (principal); F14.20 Cocaine dependence, uncomplicated; F11.10 Opioid abuse, uncomplicated; F17.210 Nicotine dependence, cigarettes, uncomplicated; F25.9 Schizoaffective disorder, unspecified; F31.9 Bipolar disorder, unspecified; G62.9 Polyneuropathy, unspecified; K21.9 Gastro-esophageal reflux disease without esophagitis; R20.2 Paresthesia of skin; Z88.5 Allergy status to narcotic agent; Z88.8 Allergy status to other drugs, medicaments and biological substances; Z59.0 Homelessness

== ENCOUNTER 2021-11-21 12:43 | Inpatient (IN) | payer OTHER ==
[2021-11-21] MEDS ORDERED: BISMUTH SUBSALICYLATE 524 MG/30 ML PO PRN (14:30)
[2021-11-21] MEDS ORDERED: LOPERAMIDE HCL 2 MG CAPSULE PO PRN (14:30)
[2021-11-21] MEDS ORDERED: NICOTINE 10 MG CARTRIDGE (INHALER) IH PRN (14:30)
[2021-11-21] MEDS ORDERED: MAGNESIUM HYDROX 2400MG/30ML ORAL SUSPENSION 30 ML CUP PO PRN (14:30)
[2021-11-21] MEDS ORDERED: MENTHOL/PHENOL 1 EACH UD MM PRN (14:30)
[2021-11-21] MEDS ORDERED: LORazepam 2 MG TABLET PO ONE (14:30)
[2021-11-21] MEDS ORDERED: MAGNESIUM CITRATE 300 ML BOTTLE PO PRN (14:30)
[2021-11-21] MEDS ORDERED: LORazepam 1 MG TABLET PO PRN (14:30)
[2021-11-21] MEDS ORDERED: IBUPROFEN 400 MG TABLET (FP) PO PRN (14:30)
[2021-11-21] MEDS ORDERED: ACETAMINOPHEN 325 MG TABLET (FP) PO PRN ×2 (14:30)
[2021-11-21] MEDS ORDERED: hydrOXYzine PAMOATE 25 MG CAPSULE (FP) PO PRN (14:30)
[2021-11-21] MEDS ORDERED: DICYCLOMINE HCL 10 MG CAPSULE PO PRN (14:30)
[2021-11-21] MEDS ORDERED: MAG HYDROX/AL HYDROX/SIMETH 30 ML UNIT-DOSE CUP PO PRN (14:30)
[2021-11-21] MEDS ORDERED: METHOCARBAMOL 500 MG TABLET PO PRN (14:30)
[2021-11-21] MEDS ORDERED: NICOTINE POLACRILEX 4 MG GUM BUC PRN (14:30)
[2021-11-21] MEDS ORDERED: ONDANSETRON *ODT* 4 MG TABLET ONE (14:51)
[2021-11-21 15:03] VITALS: BMI 27.6
[2021-11-21] MEDS: ONDANSETRON *ODT* 4 MG TABLET SL PRN (15:07)
[2021-11-21] MEDS: PRENATAL VITAMINS W/ FOLIC ACID TABLET (FP) PO SCH (15:43)
[2021-11-21] MEDS: PANTOPRAZOLE 40 MG TABLET PO SCH (15:44)
[2021-11-21] MEDS: LORazepam 2 MG TABLET PO SCH ×2 (17:46→22:07)
[2021-11-21] MEDS: THIAMINE HCL 100 MG TABLET (FP) PO SCH (22:07)
[2021-11-21] MEDS: MELATONIN 5 MG TABLETS PO SCH (22:07)
[2021-11-22] MEDS: LORazepam 2 MG TABLET PO SCH ×4 (05:32→22:30)
[2021-11-22] MEDS: PANTOPRAZOLE 40 MG TABLET PO SCH (10:11)
[2021-11-22] MEDS: PRENATAL VITAMINS W/ FOLIC ACID TABLET (FP) PO SCH (10:11)
[2021-11-22] MEDS ORDERED: PNEUMOC 13-VAL CONJ-DIP CRM/PF 0.5 ML DISP.SYRIN IM ONE (12:00)
[2021-11-22] MEDS ORDERED: PNEUMOCOCCAL 23 VACCINE 0.5 ML VIAL IM ONE (12:45)
[2021-11-22] MEDS: OLANZapine 10 MG TABLET PO SCH ×2 (14:15→22:30)
[2021-11-22] MEDS: TOPIRAMATE 100 MG TABLET PO SCH (14:20)
[2021-11-22] MEDS: QUEtiapine FUMARATE 50 MG TABLET PO SCH (22:30)
[2021-11-22] MEDS: THIAMINE HCL 100 MG TABLET (FP) PO SCH (22:30)
[2021-11-22] MEDS: MELATONIN 5 MG TABLETS PO SCH (22:31)
[2021-11-23] MEDS: TOPIRAMATE 100 MG TABLET PO SCH ×3 (01:42→22:25)
[2021-11-23] MEDS: LORazepam 1 MG TABLET PO SCH ×4 (06:14→22:33)
[2021-11-23] MEDS: OLANZapine 10 MG TABLET PO SCH ×2 (10:24→22:25)
[2021-11-23] MEDS: PANTOPRAZOLE 40 MG TABLET PO SCH (10:24)
[2021-11-23] MEDS: PRENATAL VITAMINS W/ FOLIC ACID TABLET (FP) PO SCH (10:24)
[2021-11-23] MEDS: ONDANSETRON *ODT* 4 MG TABLET SL PRN (10:26)
[2021-11-23 14:41] LABS: HEMATOCRIT 37.8 % (35.4-49); HEMOGLOBIN 12.7 GM/dL (11.7-16.9); MCH 27.6 pg (25.7-33.7); MCHC 33.5 g/dl (32.0-35.9); MEAN CELL VOLUME 82.3 fl (80-96); MEAN PLT VOLUME 9.6 fl (7.5-11.1); PLATELET COUNT 231 10^3/uL (134-434); RDW 14.2 % (11.9-15.9); WHITE BLOOD COUNT 5.3 K/mm3 (4.0-10.0)
[2021-11-23 14:57] LABS: ALBUMIN 3.1 g/dl (3.4-5.0); BLOOD UREA NITROGEN 11.6 mg/dL (7-18); CALCIUM 8.7 mg/dL (8.5-10.1)
[2021-11-23 15:00] LABS: CREATININE 0.9 mg/dL (0.55-1.3)
[2021-11-23 15:01] LABS: BILIRUBIN,TOTAL 0.6 mg/dL (0.2-1)
[2021-11-23] MEDS: THIAMINE HCL 100 MG TABLET (FP) PO SCH (22:25)
[2021-11-23] MEDS: QUEtiapine FUMARATE 50 MG TABLET PO SCH (22:25)
[2021-11-23] MEDS: MELATONIN 5 MG TABLETS PO SCH (22:26)
[2021-11-24] MEDS ORDERED: LORazepam 0.5 MG TABLET PO PRN
[2021-11-24 00:06] LABS: SARS-CoV-2 NAA Not Detected (Not Detected)
[2021-11-24] MEDS: LORazepam 0.5 MG TABLET PO SCH ×4 (06:01→22:55)
[2021-11-24] MEDS: TOPIRAMATE 100 MG TABLET PO SCH ×2 (10:13→21:53)
[2021-11-24] MEDS: OLANZapine 10 MG TABLET PO SCH ×2 (10:13→21:53)
[2021-11-24] MEDS: PRENATAL VITAMINS W/ FOLIC ACID TABLET (FP) PO SCH (10:13)
[2021-11-24] MEDS: PANTOPRAZOLE 40 MG TABLET PO SCH (10:13)
[2021-11-24] MEDS: THIAMINE HCL 100 MG TABLET (FP) PO SCH (21:53)
[2021-11-24] MEDS: QUEtiapine FUMARATE 50 MG TABLET PO SCH (21:53)
[2021-11-24] MEDS: MELATONIN 5 MG TABLETS PO SCH (22:56)
[2021-11-25] MEDS ORDERED: LORazepam 0.5 MG TABLET PO ONE (05:00)
[2021-11-25 09:33] VITALS: BP 143/83; PULSE 82; TEMP 98.7
[2021-11-25] MEDS: OLANZapine 10 MG TABLET PO SCH (10:09)
[2021-11-25] MEDS: PRENATAL VITAMINS W/ FOLIC ACID TABLET (FP) PO SCH (10:09)
[2021-11-25] MEDS: PANTOPRAZOLE 40 MG TABLET PO SCH (10:09)
[2021-11-25] MEDS: TOPIRAMATE 100 MG TABLET PO SCH (10:09)
== END 2021-11-25 12:35 | disposition other institution (70) | DRG 774 ==
LOC: YASAS 12:43 → Y6N 14:56
PROVIDERS: ADMIT Allergy & Immunology; ATTEND Allergy & Immunology
PROC: HZ2ZZZZ Detoxification Services for Substance Abuse Treatment (ICD-10-PCS; principal; 2021-11-21)
DX: F10.230 Alcohol dependence with withdrawal, uncomplicated (principal); F14.20 Cocaine dependence, uncomplicated; F17.210 Nicotine dependence, cigarettes, uncomplicated; F31.9 Bipolar disorder, unspecified; F19.24 Other psychoactive substance dependence with psychoactive substance-induced mood disorder; F19.282 Other psychoactive substance dependence with psychoactive substance-induced sleep disorder; K21.9 Gastro-esophageal reflux disease without esophagitis; R00.0 Tachycardia, unspecified; Z28.310 Unvaccinated for COVID-19; Z86.59 Personal history of other mental and behavioral disorders; Z88.5 Allergy status to narcotic agent; Z88.8 Allergy status to other drugs, medicaments and biological substances; Z62.810 Personal history of physical and sexual abuse in childhood; Z56.0 Unemployment, unspecified; Z59.00 Homelessness unspecified
CPT/HCPCS: 36415; 80053; 85027; 86780; 87811; 90732; C9803-CS; G0009; Q0162; U0003; U0005

== ENCOUNTER 2021-11-25 12:47 | Inpatient (IN) | payer OTHER ==
[2021-11-25] MEDS ORDERED: MENTHOL/PHENOL 1 EACH UD MM PRN (14:17)
[2021-11-25] MEDS ORDERED: guaiFENesin 200 MG/10 ML 10 ML UNIT-DOSE CUPS PO PRN (14:17)
[2021-11-25] MEDS ORDERED: LOPERAMIDE HCL 2 MG CAPSULE PO PRN (14:17)
[2021-11-25] MEDS ORDERED: P-EPHED 60MG/TRIPROLIDI 2.5MG TABLET PO PRN (14:17)
[2021-11-25] MEDS ORDERED: MAG HYDROX/AL HYDROX/SIMETH 30 ML UNIT-DOSE CUP PO PRN (14:17)
[2021-11-25] MEDS ORDERED: MAGNESIUM CITRATE 300 ML BOTTLE PO PRN (14:17)
[2021-11-25] MEDS ORDERED: NICOTINE 10 MG CARTRIDGE (INHALER) IH PRN (14:17)
[2021-11-25] MEDS ORDERED: MAGNESIUM HYDROX 2400MG/30ML ORAL SUSPENSION 30 ML CUP PO PRN (14:17)
[2021-11-25] MEDS: hydrOXYzine PAMOATE 25 MG CAPSULE (FP) PO SCH ×2 (18:35→21:12)
[2021-11-25] MEDS: OLANZapine 10 MG TABLET PO SCH (21:11)
[2021-11-25] MEDS: MELATONIN 5 MG TABLETS PO SCH (21:11)
[2021-11-25] MEDS: THIAMINE HCL 100 MG TABLET (FP) PO SCH (21:11)
[2021-11-25] MEDS: QUEtiapine FUMARATE 50 MG TABLET PO SCH (21:12)
[2021-11-25] MEDS: TOPIRAMATE 100 MG TABLET PO SCH (21:12)
[2021-11-26] MEDS: hydrOXYzine PAMOATE 25 MG CAPSULE (FP) PO SCH ×5 (06:04→21:12)
[2021-11-26] MEDS ORDERED: AMMONIUM LACTATE 12% LOTION 225 GM BOTTLE TP PRN (09:29)
[2021-11-26] MEDS: TOPIRAMATE 100 MG TABLET PO SCH ×2 (09:30→21:12)
[2021-11-26] MEDS: PANTOPRAZOLE 40 MG TABLET PO SCH (09:30)
[2021-11-26] MEDS: OLANZapine 10 MG TABLET PO SCH ×2 (09:30→21:12)
[2021-11-26] MEDS: PRENATAL VITAMINS W/ FOLIC ACID TABLET (FP) PO SCH (09:30)
[2021-11-26] MEDS: NICOTINE 7 MG/24 HOURS TOPICAL PATCH TD SCH (09:31)
[2021-11-26] MEDS: THIAMINE HCL 100 MG TABLET (FP) PO SCH (21:12)
[2021-11-26] MEDS: MELATONIN 5 MG TABLETS PO SCH (21:12)
[2021-11-26] MEDS: QUEtiapine FUMARATE 50 MG TABLET PO SCH (21:12)
[2021-11-27] MEDS: hydrOXYzine PAMOATE 25 MG CAPSULE (FP) PO SCH ×5 (06:37→21:16)
[2021-11-27] MEDS: PANTOPRAZOLE 40 MG TABLET PO SCH (10:00)
[2021-11-27] MEDS: PRENATAL VITAMINS W/ FOLIC ACID TABLET (FP) PO SCH (10:00)
[2021-11-27] MEDS: OLANZapine 10 MG TABLET PO SCH ×2 (10:00→21:16)
[2021-11-27] MEDS: TOPIRAMATE 100 MG TABLET PO SCH ×2 (10:01→21:16)
[2021-11-27] MEDS: NICOTINE 7 MG/24 HOURS TOPICAL PATCH TD SCH (10:01)
[2021-11-27] MEDS: IBUPROFEN 400 MG TABLET (FP) PO PRN (12:59)
[2021-11-27] MEDS: THIAMINE HCL 100 MG TABLET (FP) PO SCH (21:15)
[2021-11-27] MEDS: QUEtiapine FUMARATE 50 MG TABLET PO SCH (21:16)
[2021-11-27] MEDS: MELATONIN 5 MG TABLETS PO SCH (23:07)
[2021-11-28] MEDS: hydrOXYzine PAMOATE 25 MG CAPSULE (FP) PO SCH ×5 (07:03→21:37)
[2021-11-28] MEDS: TOPIRAMATE 100 MG TABLET PO SCH ×2 (10:06→21:36)
[2021-11-28] MEDS: OLANZapine 10 MG TABLET PO SCH ×2 (10:06→21:36)
[2021-11-28] MEDS: PANTOPRAZOLE 40 MG TABLET PO SCH (10:06)
[2021-11-28] MEDS: PRENATAL VITAMINS W/ FOLIC ACID TABLET (FP) PO SCH (10:06)
[2021-11-28] MEDS: NICOTINE 7 MG/24 HOURS TOPICAL PATCH TD SCH (10:07)
[2021-11-28] MEDS: ACETAMINOPHEN 325 MG TABLET (FP) PO PRN (14:01)
[2021-11-28] MEDS: QUEtiapine FUMARATE 50 MG TABLET PO SCH (21:36)
[2021-11-28] MEDS: MELATONIN 5 MG TABLETS PO SCH (21:37)
[2021-11-28] MEDS: THIAMINE HCL 100 MG TABLET (FP) PO SCH (21:38)
[2021-11-29] MEDS: hydrOXYzine PAMOATE 25 MG CAPSULE (FP) PO SCH ×5 (06:52→21:27)
[2021-11-29] MEDS: PRENATAL VITAMINS W/ FOLIC ACID TABLET (FP) PO SCH (10:04)
[2021-11-29] MEDS: NICOTINE 7 MG/24 HOURS TOPICAL PATCH TD SCH (10:04)
[2021-11-29] MEDS: PANTOPRAZOLE 40 MG TABLET PO SCH (10:04)
[2021-11-29] MEDS: OLANZapine 10 MG TABLET PO SCH ×2 (10:04→21:27)
[2021-11-29] MEDS: TOPIRAMATE 100 MG TABLET PO SCH ×2 (10:04→21:27)
[2021-11-29] MEDS: MELATONIN 5 MG TABLETS PO SCH (21:26)
[2021-11-29] MEDS: QUEtiapine FUMARATE 50 MG TABLET PO SCH (21:26)
[2021-11-29] MEDS: THIAMINE HCL 100 MG TABLET (FP) PO SCH (21:27)
[2021-11-30] MEDS: hydrOXYzine PAMOATE 25 MG CAPSULE (FP) PO SCH ×5 (06:47→21:14)
[2021-11-30] MEDS: OLANZapine 10 MG TABLET PO SCH ×2 (10:28→21:13)
[2021-11-30] MEDS: PANTOPRAZOLE 40 MG TABLET PO SCH (10:28)
[2021-11-30] MEDS: PRENATAL VITAMINS W/ FOLIC ACID TABLET (FP) PO SCH (10:28)
[2021-11-30] MEDS: NICOTINE 7 MG/24 HOURS TOPICAL PATCH TD SCH (10:28)
[2021-11-30] MEDS: TOPIRAMATE 100 MG TABLET PO SCH ×2 (10:28→21:13)
[2021-11-30] MEDS: THIAMINE HCL 100 MG TABLET (FP) PO SCH (21:13)
[2021-11-30] MEDS: MELATONIN 5 MG TABLETS PO SCH (21:13)
[2021-11-30] MEDS: QUEtiapine FUMARATE 50 MG TABLET PO SCH (21:13)
[2021-12-01] MEDS: hydrOXYzine PAMOATE 25 MG CAPSULE (FP) PO SCH ×5 (06:19→21:13)
[2021-12-01] MEDS: IBUPROFEN 400 MG TABLET (FP) PO PRN (08:29)
[2021-12-01] MEDS: NICOTINE 7 MG/24 HOURS TOPICAL PATCH TD SCH (09:37)
[2021-12-01] MEDS: OLANZapine 10 MG TABLET PO SCH ×2 (09:38→21:12)
[2021-12-01] MEDS: PANTOPRAZOLE 40 MG TABLET PO SCH (09:38)
[2021-12-01] MEDS: TOPIRAMATE 100 MG TABLET PO SCH ×2 (09:38→21:12)
[2021-12-01] MEDS: PRENATAL VITAMINS W/ FOLIC ACID TABLET (FP) PO SCH (09:38)
[2021-12-01] MEDS: THIAMINE HCL 100 MG TABLET (FP) PO SCH (21:12)
[2021-12-01] MEDS: MELATONIN 5 MG TABLETS PO SCH (21:12)
[2021-12-01] MEDS: QUEtiapine FUMARATE 50 MG TABLET PO SCH (21:12)
[2021-12-02] MEDS: hydrOXYzine PAMOATE 25 MG CAPSULE (FP) PO SCH (05:55)
[2021-12-02] MEDS: NICOTINE 7 MG/24 HOURS TOPICAL PATCH TD SCH (10:10)
[2021-12-02] MEDS: TOPIRAMATE 100 MG TABLET PO SCH ×2 (10:10→21:13)
[2021-12-02] MEDS: OLANZapine 10 MG TABLET PO SCH ×2 (10:10→21:13)
[2021-12-02] MEDS: PANTOPRAZOLE 40 MG TABLET PO SCH (10:10)
[2021-12-02] MEDS: PRENATAL VITAMINS W/ FOLIC ACID TABLET (FP) PO SCH (10:10)
[2021-12-02] MEDS: IBUPROFEN 400 MG TABLET (FP) PO PRN (10:27)
[2021-12-02] MEDS: QUEtiapine FUMARATE 50 MG TABLET PO SCH (21:13)
[2021-12-02] MEDS: MELATONIN 5 MG TABLETS PO SCH (21:13)
[2021-12-02] MEDS: THIAMINE HCL 100 MG TABLET (FP) PO SCH (21:14)
[2021-12-02] MEDS: DOCUSATE SODIUM 100 MG CAPSULE (FP) PO SCH (21:14)
[2021-12-03] MEDS: NICOTINE 7 MG/24 HOURS TOPICAL PATCH TD SCH (10:07)
[2021-12-03] MEDS: TOPIRAMATE 100 MG TABLET PO SCH ×2 (10:08→21:25)
[2021-12-03] MEDS: OLANZapine 10 MG TABLET PO SCH ×2 (10:08→21:25)
[2021-12-03] MEDS: PANTOPRAZOLE 40 MG TABLET PO SCH (10:08)
[2021-12-03] MEDS: IBUPROFEN 400 MG TABLET (FP) PO PRN (10:08)
[2021-12-03] MEDS: PRENATAL VITAMINS W/ FOLIC ACID TABLET (FP) PO SCH (10:10)
[2021-12-03] MEDS: ACETAMINOPHEN 325 MG TABLET (FP) PO PRN (13:57)
[2021-12-03] MEDS: QUEtiapine FUMARATE 50 MG TABLET PO SCH (21:25)
[2021-12-03] MEDS: DOCUSATE SODIUM 100 MG CAPSULE (FP) PO SCH (21:25)
[2021-12-03] MEDS: THIAMINE HCL 100 MG TABLET (FP) PO SCH (21:26)
[2021-12-03] MEDS: MELATONIN 5 MG TABLETS PO SCH (21:26)
[2021-12-04] MEDS: PRENATAL VITAMINS W/ FOLIC ACID TABLET (FP) PO SCH (09:12)
[2021-12-04] MEDS: NICOTINE 7 MG/24 HOURS TOPICAL PATCH TD SCH (09:12)
[2021-12-04] MEDS: OLANZapine 10 MG TABLET PO SCH ×2 (09:13→22:57)
[2021-12-04] MEDS: PANTOPRAZOLE 40 MG TABLET PO SCH (09:13)
[2021-12-04] MEDS: TOPIRAMATE 100 MG TABLET PO SCH ×2 (09:13→22:57)
[2021-12-04] MEDS: IBUPROFEN 400 MG TABLET (FP) PO PRN (09:14)
[2021-12-04] MEDS: ACETAMINOPHEN 325 MG TABLET (FP) PO PRN (13:21)
[2021-12-04] MEDS: DOCUSATE SODIUM 100 MG CAPSULE (FP) PO SCH (22:56)
[2021-12-04] MEDS: THIAMINE HCL 100 MG TABLET (FP) PO SCH (22:57)
[2021-12-04] MEDS: MELATONIN 5 MG TABLETS PO SCH (22:57)
[2021-12-04] MEDS: QUEtiapine FUMARATE 50 MG TABLET PO SCH (22:57)
[2021-12-05] MEDS: IBUPROFEN 400 MG TABLET (FP) PO PRN (07:34)
[2021-12-05] MEDS: PANTOPRAZOLE 40 MG TABLET PO SCH (09:16)
[2021-12-05] MEDS: TOPIRAMATE 100 MG TABLET PO SCH ×2 (09:16→22:51)
[2021-12-05] MEDS: NICOTINE 7 MG/24 HOURS TOPICAL PATCH TD SCH (09:16)
[2021-12-05] MEDS: OLANZapine 10 MG TABLET PO SCH ×2 (09:16→22:51)
[2021-12-05] MEDS: PRENATAL VITAMINS W/ FOLIC ACID TABLET (FP) PO SCH (09:16)
[2021-12-05] MEDS: QUEtiapine FUMARATE 50 MG TABLET PO SCH (22:51)
[2021-12-05] MEDS: DOCUSATE SODIUM 100 MG CAPSULE (FP) PO SCH (22:51)
[2021-12-05] MEDS: MELATONIN 5 MG TABLETS PO SCH (22:52)
[2021-12-05] MEDS: THIAMINE HCL 100 MG TABLET (FP) PO SCH (22:52)
[2021-12-06] MEDS: COLLOIDAL OATMEAL 1 BAR EACH TP PRN (05:49)
[2021-12-06] MEDS: IBUPROFEN 400 MG TABLET (FP) PO PRN ×2 (08:27→20:27)
[2021-12-06] MEDS: PANTOPRAZOLE 40 MG TABLET PO SCH (10:05)
[2021-12-06] MEDS: OLANZapine 10 MG TABLET PO SCH ×2 (10:05→22:38)
[2021-12-06] MEDS: TOPIRAMATE 100 MG TABLET PO SCH ×2 (10:05→22:38)
[2021-12-06] MEDS: NICOTINE 7 MG/24 HOURS TOPICAL PATCH TD SCH (10:06)
[2021-12-06] MEDS: PRENATAL VITAMINS W/ FOLIC ACID TABLET (FP) PO SCH (10:06)
[2021-12-06] MEDS: DOCUSATE SODIUM 100 MG CAPSULE (FP) PO SCH (22:38)
[2021-12-06] MEDS: QUEtiapine FUMARATE 50 MG TABLET PO SCH (22:38)
[2021-12-06] MEDS: MELATONIN 5 MG TABLETS PO SCH (22:39)
[2021-12-06] MEDS: THIAMINE HCL 100 MG TABLET (FP) PO SCH (22:39)
[2021-12-07] MEDS: TOPIRAMATE 100 MG TABLET PO SCH ×2 (10:27→22:23)
[2021-12-07] MEDS: OLANZapine 10 MG TABLET PO SCH ×2 (10:27→22:23)
[2021-12-07] MEDS: PANTOPRAZOLE 40 MG TABLET PO SCH (10:27)
[2021-12-07] MEDS: PRENATAL VITAMINS W/ FOLIC ACID TABLET (FP) PO SCH (10:27)
[2021-12-07] MEDS: NICOTINE 7 MG/24 HOURS TOPICAL PATCH TD SCH (10:28)
[2021-12-07] MEDS: IBUPROFEN 400 MG TABLET (FP) PO PRN (13:45)
[2021-12-07] MEDS: MELATONIN 5 MG TABLETS PO SCH (22:23)
[2021-12-07] MEDS: THIAMINE HCL 100 MG TABLET (FP) PO SCH (22:23)
[2021-12-07] MEDS: QUEtiapine FUMARATE 50 MG TABLET PO SCH (22:23)
[2021-12-07] MEDS: DOCUSATE SODIUM 100 MG CAPSULE (FP) PO SCH (22:23)
[2021-12-08] MEDS: IBUPROFEN 400 MG TABLET (FP) PO PRN (06:17)
[2021-12-08] MEDS: OLANZapine 10 MG TABLET PO SCH ×2 (10:36→21:42)
[2021-12-08] MEDS: TOPIRAMATE 100 MG TABLET PO SCH ×2 (10:36→21:42)
[2021-12-08] MEDS: PANTOPRAZOLE 40 MG TABLET PO SCH (10:36)
[2021-12-08] MEDS: PRENATAL VITAMINS W/ FOLIC ACID TABLET (FP) PO SCH (10:36)
[2021-12-08] MEDS: hydrOXYzine PAMOATE 25 MG CAPSULE (FP) PO PRN (10:37)
[2021-12-08] MEDS: NICOTINE 7 MG/24 HOURS TOPICAL PATCH TD SCH (10:37)
[2021-12-08] MEDS: QUEtiapine FUMARATE 50 MG TABLET PO SCH (21:41)
[2021-12-08] MEDS: DOCUSATE SODIUM 100 MG CAPSULE (FP) PO SCH (21:42)
[2021-12-08] MEDS: MELATONIN 5 MG TABLETS PO SCH (21:42)
[2021-12-08] MEDS: THIAMINE HCL 100 MG TABLET (FP) PO SCH (21:42)
[2021-12-09] MEDS: IBUPROFEN 400 MG TABLET (FP) PO PRN (08:38)
[2021-12-09] MEDS: TOPIRAMATE 100 MG TABLET PO SCH ×2 (10:18→21:21)
[2021-12-09] MEDS: PRENATAL VITAMINS W/ FOLIC ACID TABLET (FP) PO SCH (10:18)
[2021-12-09] MEDS: PANTOPRAZOLE 40 MG TABLET PO SCH (10:18)
[2021-12-09] MEDS: OLANZapine 10 MG TABLET PO SCH ×2 (10:18→21:20)
[2021-12-09] MEDS: NICOTINE 7 MG/24 HOURS TOPICAL PATCH TD SCH (10:19)
[2021-12-09] MEDS: hydrOXYzine PAMOATE 25 MG CAPSULE (FP) PO PRN (10:19)
[2021-12-09] MEDS: DOCUSATE SODIUM 100 MG CAPSULE (FP) PO SCH (21:20)
[2021-12-09] MEDS: MELATONIN 5 MG TABLETS PO SCH (21:20)
[2021-12-09] MEDS: QUEtiapine FUMARATE 50 MG TABLET PO SCH (21:21)
[2021-12-09] MEDS: THIAMINE HCL 100 MG TABLET (FP) PO SCH (21:21)
[2021-12-10] MEDS: IBUPROFEN 400 MG TABLET (FP) PO PRN (08:23)
[2021-12-10] MEDS: NICOTINE 7 MG/24 HOURS TOPICAL PATCH TD SCH (10:00)
[2021-12-10] MEDS: PANTOPRAZOLE 40 MG TABLET PO SCH (10:00)
[2021-12-10] MEDS: PRENATAL VITAMINS W/ FOLIC ACID TABLET (FP) PO SCH (10:00)
[2021-12-10] MEDS: TOPIRAMATE 100 MG TABLET PO SCH ×2 (10:00→22:44)
[2021-12-10] MEDS: OLANZapine 10 MG TABLET PO SCH ×2 (10:00→22:45)
[2021-12-10] MEDS: QUEtiapine FUMARATE 50 MG TABLET PO SCH (22:44)
[2021-12-10] MEDS: MELATONIN 5 MG TABLETS PO SCH (22:45)
[2021-12-10] MEDS: DOCUSATE SODIUM 100 MG CAPSULE (FP) PO SCH (22:45)
[2021-12-10] MEDS: THIAMINE HCL 100 MG TABLET (FP) PO SCH (23:04)
[2021-12-11] MEDS: NICOTINE 7 MG/24 HOURS TOPICAL PATCH TD SCH (09:58)
[2021-12-11] MEDS: PRENATAL VITAMINS W/ FOLIC ACID TABLET (FP) PO SCH (09:58)
[2021-12-11] MEDS: PANTOPRAZOLE 40 MG TABLET PO SCH (09:59)
[2021-12-11] MEDS: TOPIRAMATE 100 MG TABLET PO SCH ×2 (09:59→22:14)
[2021-12-11] MEDS: OLANZapine 10 MG TABLET PO SCH ×2 (09:59→22:15)
[2021-12-11] MEDS: MELATONIN 5 MG TABLETS PO SCH (22:12)
[2021-12-11] MEDS: DOCUSATE SODIUM 100 MG CAPSULE (FP) PO SCH (22:12)
[2021-12-11] MEDS: QUEtiapine FUMARATE 50 MG TABLET PO SCH (22:15)
[2021-12-11] MEDS: THIAMINE HCL 100 MG TABLET (FP) PO SCH (22:16)
[2021-12-12] MEDS: PANTOPRAZOLE 40 MG TABLET PO SCH (10:22)
[2021-12-12] MEDS: TOPIRAMATE 100 MG TABLET PO SCH ×2 (10:22→21:48)
[2021-12-12] MEDS: NICOTINE 7 MG/24 HOURS TOPICAL PATCH TD SCH (10:22)
[2021-12-12] MEDS: OLANZapine 10 MG TABLET PO SCH ×2 (10:22→21:48)
[2021-12-12] MEDS: PRENATAL VITAMINS W/ FOLIC ACID TABLET (FP) PO SCH (10:22)
[2021-12-12] MEDS: IBUPROFEN 400 MG TABLET (FP) PO PRN (10:39)
[2021-12-12] MEDS: DOCUSATE SODIUM 100 MG CAPSULE (FP) PO SCH (21:47)
[2021-12-12] MEDS: QUEtiapine FUMARATE 50 MG TABLET PO SCH (21:48)
[2021-12-12] MEDS: MELATONIN 5 MG TABLETS PO SCH (21:48)
[2021-12-12] MEDS: THIAMINE HCL 100 MG TABLET (FP) PO SCH (21:48)
[2021-12-13] MEDS: IBUPROFEN 400 MG TABLET (FP) PO PRN (10:21)
[2021-12-13] MEDS: OLANZapine 10 MG TABLET PO SCH ×2 (10:21→21:18)
[2021-12-13] MEDS: PANTOPRAZOLE 40 MG TABLET PO SCH (10:22)
[2021-12-13] MEDS: NICOTINE 7 MG/24 HOURS TOPICAL PATCH TD SCH (10:23)
[2021-12-13] MEDS: PRENATAL VITAMINS W/ FOLIC ACID TABLET (FP) PO SCH (10:23)
[2021-12-13] MEDS: TOPIRAMATE 100 MG TABLET PO SCH ×2 (10:23→21:18)
[2021-12-13] MEDS: hydrOXYzine PAMOATE 25 MG CAPSULE (FP) PO PRN (10:24)
[2021-12-13] MEDS: QUEtiapine FUMARATE 50 MG TABLET PO SCH (21:17)
[2021-12-13] MEDS: DOCUSATE SODIUM 100 MG CAPSULE (FP) PO SCH (21:17)
[2021-12-13] MEDS: MELATONIN 5 MG TABLETS PO SCH (21:17)
[2021-12-13] MEDS: THIAMINE HCL 100 MG TABLET (FP) PO SCH (21:18)
[2021-12-14] MEDS: PANTOPRAZOLE 40 MG TABLET PO SCH (10:18)
[2021-12-14] MEDS: TOPIRAMATE 100 MG TABLET PO SCH ×2 (10:18→21:19)
[2021-12-14] MEDS: NICOTINE 7 MG/24 HOURS TOPICAL PATCH TD SCH (10:18)
[2021-12-14] MEDS: PRENATAL VITAMINS W/ FOLIC ACID TABLET (FP) PO SCH (10:18)
[2021-12-14] MEDS: IBUPROFEN 400 MG TABLET (FP) PO PRN (10:38)
[2021-12-14] MEDS: OLANZapine 10 MG TABLET PO SCH ×2 (11:46→21:19)
[2021-12-14] MEDS: COLLOIDAL OATMEAL 1 BAR EACH TP PRN (14:13)
[2021-12-14] MEDS: QUEtiapine FUMARATE 50 MG TABLET PO SCH (21:19)
[2021-12-14] MEDS: DOCUSATE SODIUM 100 MG CAPSULE (FP) PO SCH (21:19)
[2021-12-14] MEDS: MELATONIN 5 MG TABLETS PO SCH (21:19)
[2021-12-14] MEDS: THIAMINE HCL 100 MG TABLET (FP) PO SCH (21:20)
[2021-12-15] MEDS: IBUPROFEN 400 MG TABLET (FP) PO PRN (08:00)
[2021-12-15] MEDS: OLANZapine 10 MG TABLET PO SCH ×2 (10:00→21:17)
[2021-12-15] MEDS: PRENATAL VITAMINS W/ FOLIC ACID TABLET (FP) PO SCH (10:00)
[2021-12-15] MEDS: PANTOPRAZOLE 40 MG TABLET PO SCH (10:00)
[2021-12-15] MEDS: TOPIRAMATE 100 MG TABLET PO SCH ×2 (10:00→21:17)
[2021-12-15] MEDS: NICOTINE 7 MG/24 HOURS TOPICAL PATCH TD SCH (10:00)
[2021-12-15] MEDS: MELATONIN 5 MG TABLETS PO SCH (21:17)
[2021-12-15] MEDS: DOCUSATE SODIUM 100 MG CAPSULE (FP) PO SCH (21:17)
[2021-12-15] MEDS: QUEtiapine FUMARATE 50 MG TABLET PO SCH (21:17)
[2021-12-15] MEDS: THIAMINE HCL 100 MG TABLET (FP) PO SCH (21:18)
[2021-12-16] MEDS: IBUPROFEN 400 MG TABLET (FP) PO PRN (08:23)
[2021-12-16] MEDS: PRENATAL VITAMINS W/ FOLIC ACID TABLET (FP) PO SCH (10:28)
[2021-12-16] MEDS: NICOTINE 7 MG/24 HOURS TOPICAL PATCH TD SCH (10:28)
[2021-12-16] MEDS: TOPIRAMATE 100 MG TABLET PO SCH ×2 (10:28→21:34)
[2021-12-16] MEDS: OLANZapine 10 MG TABLET PO SCH ×2 (10:28→21:34)
[2021-12-16] MEDS: PANTOPRAZOLE 40 MG TABLET PO SCH (10:28)
[2021-12-16] MEDS: DOCUSATE SODIUM 100 MG CAPSULE (FP) PO SCH (21:34)
[2021-12-16] MEDS: QUEtiapine FUMARATE 50 MG TABLET PO SCH (21:34)
[2021-12-16] MEDS: THIAMINE HCL 100 MG TABLET (FP) PO SCH (21:35)
[2021-12-16] MEDS ORDERED: MELATONIN 5 MG TABLETS PO SCH (22:00)
[2021-12-17 07:07] VITALS: TEMP 96.5
[2021-12-17] MEDS: IBUPROFEN 400 MG TABLET (FP) PO PRN (10:14)
[2021-12-17] MEDS: OLANZapine 10 MG TABLET PO SCH (10:14)
[2021-12-17] MEDS: TOPIRAMATE 100 MG TABLET PO SCH (10:14)
[2021-12-17] MEDS: PANTOPRAZOLE 40 MG TABLET PO SCH (10:14)
[2021-12-17] MEDS: PRENATAL VITAMINS W/ FOLIC ACID TABLET (FP) PO SCH (10:15)
[2021-12-17] MEDS: NICOTINE 7 MG/24 HOURS TOPICAL PATCH TD SCH (10:15)
[2021-12-17 10:59] VITALS: BP 140/84; PULSE 79
== END 2021-12-17 20:25 | disposition home or self-care (01) | DRG 772 ==
LOC: YASAS 12:47 → Y3W 12:49
PROVIDERS: ADMIT Allergy & Immunology; ATTEND Allergy & Immunology
PROC: HZ42ZZZ Group Counseling for Substance Abuse Treatment, Cognitive-Behavioral (ICD-10-PCS; principal; 2021-11-25)
DX: F10.20 Alcohol dependence, uncomplicated (principal); F14.20 Cocaine dependence, uncomplicated; F17.210 Nicotine dependence, cigarettes, uncomplicated; F31.9 Bipolar disorder, unspecified; F25.9 Schizoaffective disorder, unspecified; R26.89 Other abnormalities of gait and mobility; Z88.8 Allergy status to other drugs, medicaments and biological substances
CPT/HCPCS: C9803-CS; U0003; U0005

== ENCOUNTER 2022-01-22 10:00 | Inpatient (IN) | payer OTHER ==
[2022-01-22 10:22] VITALS: BMI 28.8
[2022-01-22] MEDS ORDERED: MAG HYDROX/AL HYDROX/SIMETH 30 ML UNIT-DOSE CUP PO PRN (11:20)
[2022-01-22] MEDS ORDERED: ACETAMINOPHEN 325 MG TABLET (FP) PO PRN ×2 (11:20)
[2022-01-22] MEDS ORDERED: IBUPROFEN 400 MG TABLET (FP) PO PRN (11:20)
[2022-01-22] MEDS ORDERED: METHOCARBAMOL 500 MG TABLET PO PRN (11:20)
[2022-01-22] MEDS ORDERED: BISMUTH SUBSALICYLATE 524 MG/30 ML PO PRN (11:20)
[2022-01-22] MEDS ORDERED: NICOTINE 10 MG CARTRIDGE (INHALER) IH PRN (11:20)
[2022-01-22] MEDS ORDERED: NALOXONE HCL (KLOXXADO) 8 MG SPRAY NS PRN (11:20)
[2022-01-22] MEDS ORDERED: IBUPROFEN 600 MG TABLET (FP) PO PRN (11:20)
[2022-01-22] MEDS ORDERED: BENZOCAINE/MENTHOL (CHLORASEPTIC ) LOZENGE MM PRN (11:20)
[2022-01-22] MEDS ORDERED: chlordiazePOXIDE HCL 25 MG CAPSULE PO PRN (11:20)
[2022-01-22] MEDS ORDERED: MAGNESIUM HYDROX 2400MG/30ML ORAL SUSPENSION 30 ML CUP PO PRN (11:20)
[2022-01-22] MEDS ORDERED: ONDANSETRON *ODT* 4 MG TABLET SL PRN (11:20)
[2022-01-22] MEDS ORDERED: DICYCLOMINE HCL 10 MG CAPSULE PO PRN (11:20)
[2022-01-22] MEDS ORDERED: MAGNESIUM CITRATE 300 ML BOTTLE PO PRN (11:20)
[2022-01-22] MEDS ORDERED: LOPERAMIDE HCL 2 MG CAPSULE PO PRN (11:20)
[2022-01-22] MEDS: NICOTINE 21 MG/24 HOURS TOPICAL PATCH TD SCH (12:20)
[2022-01-22] MEDS: TOPIRAMATE 100 MG TABLET PO SCH ×2 (12:20→23:04)
[2022-01-22] MEDS: PANTOPRAZOLE 40 MG TABLET PO SCH (12:20)
[2022-01-22] MEDS: PRENATAL VITAMINS W/ FOLIC ACID TABLET (FP) PO SCH (12:21)
[2022-01-22] MEDS: hydrOXYzine PAMOATE 25 MG CAPSULE (FP) PO SCH ×3 (15:05→23:05)
[2022-01-22] MEDS: chlordiazePOXIDE HCL 25 MG CAPSULE PO SCH ×2 (17:49→23:05)
[2022-01-22] MEDS: MELATONIN 5 MG TABLETS PO SCH (23:04)
[2022-01-22] MEDS: THIAMINE HCL 100 MG TABLET (FP) PO SCH (23:05)
[2022-01-23] MEDS: chlordiazePOXIDE HCL 25 MG CAPSULE PO SCH ×4 (06:27→22:51)
[2022-01-23] MEDS: hydrOXYzine PAMOATE 25 MG CAPSULE (FP) PO SCH ×5 (06:28→22:52)
[2022-01-23 10:35] LABS: HEMATOCRIT 40.2 % (35.4-49); MCH 26.8 pg (25.7-33.7); MCHC 32.3 g/dl (32.0-35.9); MEAN CELL VOLUME 82.9 fl (80-96); MEAN PLT VOLUME 9.2 fl (7.5-11.1); PLATELET COUNT 252 10^3/uL (134-434); RBC 4.85 M/mm3 (4.00-5.60); RDW 14.8 % (11.9-15.9); WHITE BLOOD COUNT 5.2 K/mm3 (4.0-10.0)
[2022-01-23] MEDS: TOPIRAMATE 100 MG TABLET PO SCH ×2 (10:47→22:50)
[2022-01-23] MEDS: PANTOPRAZOLE 40 MG TABLET PO SCH (10:47)
[2022-01-23] MEDS: PRENATAL VITAMINS W/ FOLIC ACID TABLET (FP) PO SCH (10:48)
[2022-01-23] MEDS: OLANZapine 10 MG TABLET PO SCH ×2 (10:49→22:51)
[2022-01-23] MEDS: NICOTINE 21 MG/24 HOURS TOPICAL PATCH TD SCH (10:50)
[2022-01-23 10:55] LABS: CALCIUM 9.1 mg/dL (8.5-10.1)
[2022-01-23 10:56] LABS: ALBUMIN 3.5 g/dl (3.4-5.0); BLOOD UREA NITROGEN 4.8 mg/dL (7-18)
[2022-01-23 10:59] LABS: BILIRUBIN,TOTAL 0.6 mg/dL (0.2-1); CREATININE 0.9 mg/dL (0.55-1.3); TOT PROT 7.6 g/dl (6.4-8.2)
[2022-01-23] MEDS ORDERED: POTASSIUM CHLORIDE TABS 20 MEQ TABLET.ER (FP) PO ONE ×3 (12:26→21:00)
[2022-01-23] MEDS: QUEtiapine FUMARATE 50 MG TABLET PO SCH (22:50)
[2022-01-23] MEDS: THIAMINE HCL 100 MG TABLET (FP) PO SCH (22:50)
[2022-01-23] MEDS: MELATONIN 5 MG TABLETS PO SCH (22:50)
[2022-01-24] MEDS: chlordiazePOXIDE HCL 25 MG CAPSULE PO SCH ×4 (06:50→22:30)
[2022-01-24] MEDS: hydrOXYzine PAMOATE 25 MG CAPSULE (FP) PO SCH ×5 (06:50→22:29)
[2022-01-24] MEDS: PRENATAL VITAMINS W/ FOLIC ACID TABLET (FP) PO SCH (11:13)
[2022-01-24] MEDS: OLANZapine 10 MG TABLET PO SCH ×2 (11:13→22:29)
[2022-01-24] MEDS: PANTOPRAZOLE 40 MG TABLET PO SCH (11:14)
[2022-01-24] MEDS: TOPIRAMATE 100 MG TABLET PO SCH ×2 (11:14→22:29)
[2022-01-24] MEDS: NICOTINE 21 MG/24 HOURS TOPICAL PATCH TD SCH (11:29)
[2022-01-24] MEDS: MELATONIN 5 MG TABLETS PO SCH (22:28)
[2022-01-24] MEDS: THIAMINE HCL 100 MG TABLET (FP) PO SCH (22:28)
[2022-01-24] MEDS: QUEtiapine FUMARATE 50 MG TABLET PO SCH (22:29)
[2022-01-25] MEDS ORDERED: chlordiazePOXIDE HCL 10 MG CAPSULE PO PRN
[2022-01-25] MEDS: chlordiazePOXIDE HCL 10 MG CAPSULE PO SCH ×4 (05:49→22:24)
[2022-01-25] MEDS: hydrOXYzine PAMOATE 25 MG CAPSULE (FP) PO SCH ×5 (05:49→22:24)
[2022-01-25] MEDS: PRENATAL VITAMINS W/ FOLIC ACID TABLET (FP) PO SCH (10:20)
[2022-01-25] MEDS: OLANZapine 10 MG TABLET PO SCH ×2 (10:20→22:24)
[2022-01-25] MEDS: PANTOPRAZOLE 40 MG TABLET PO SCH (10:21)
[2022-01-25] MEDS: TOPIRAMATE 100 MG TABLET PO SCH ×2 (10:21→22:24)
[2022-01-25] MEDS: NICOTINE 21 MG/24 HOURS TOPICAL PATCH TD SCH (10:22)
[2022-01-25] MEDS: QUEtiapine FUMARATE 50 MG TABLET PO SCH (22:24)
[2022-01-25] MEDS: THIAMINE HCL 100 MG TABLET (FP) PO SCH (22:24)
[2022-01-25] MEDS: MELATONIN 5 MG TABLETS PO SCH (22:24)
[2022-01-26] MEDS: chlordiazePOXIDE HCL 10 MG CAPSULE PO SCH ×2 (06:48→18:05)
[2022-01-26] MEDS: hydrOXYzine PAMOATE 25 MG CAPSULE (FP) PO SCH ×5 (06:48→23:00)
[2022-01-26] MEDS: PRENATAL VITAMINS W/ FOLIC ACID TABLET (FP) PO SCH (10:26)
[2022-01-26] MEDS: PANTOPRAZOLE 40 MG TABLET PO SCH (10:26)
[2022-01-26] MEDS: TOPIRAMATE 100 MG TABLET PO SCH ×2 (10:26→23:00)
[2022-01-26] MEDS: OLANZapine 10 MG TABLET PO SCH ×2 (10:26→23:00)
[2022-01-26] MEDS: NICOTINE 21 MG/24 HOURS TOPICAL PATCH TD SCH (10:27)
[2022-01-26] MEDS: MELATONIN 5 MG TABLETS PO SCH (23:00)
[2022-01-26] MEDS: THIAMINE HCL 100 MG TABLET (FP) PO SCH (23:00)
[2022-01-26] MEDS: QUEtiapine FUMARATE 50 MG TABLET PO SCH (23:01)
[2022-01-27] MEDS ORDERED: chlordiazePOXIDE HCL 10 MG CAPSULE PO ONE (05:00)
[2022-01-27 06:22] VITALS: TEMP 96.9
[2022-01-27] MEDS: hydrOXYzine PAMOATE 25 MG CAPSULE (FP) PO SCH ×2 (07:26→10:34)
[2022-01-27 08:58] VITALS: BP 130/71; PULSE 82
[2022-01-27] MEDS: PANTOPRAZOLE 40 MG TABLET PO SCH (10:33)
[2022-01-27] MEDS: PRENATAL VITAMINS W/ FOLIC ACID TABLET (FP) PO SCH (10:33)
[2022-01-27] MEDS: OLANZapine 10 MG TABLET PO SCH (10:33)
[2022-01-27] MEDS: NICOTINE 21 MG/24 HOURS TOPICAL PATCH TD SCH (10:33)
[2022-01-27] MEDS: TOPIRAMATE 100 MG TABLET PO SCH (10:33)
== END 2022-01-27 11:38 | disposition other institution (70) | DRG 774 ==
LOC: YASAS 10:00 → Y3N 11:47
PROVIDERS: ADMIT Allergy & Immunology; ATTEND Surgery
PROC: HZ2ZZZZ Detoxification Services for Substance Abuse Treatment (ICD-10-PCS; principal; 2022-01-22)
DX: F10.230 Alcohol dependence with withdrawal, uncomplicated (principal); F14.10 Cocaine abuse, uncomplicated; F17.210 Nicotine dependence, cigarettes, uncomplicated; F31.9 Bipolar disorder, unspecified; F19.282 Other psychoactive substance dependence with psychoactive substance-induced sleep disorder; F20.9 Schizophrenia, unspecified; F19.24 Other psychoactive substance dependence with psychoactive substance-induced mood disorder; E87.6 Hypokalemia; K21.9 Gastro-esophageal reflux disease without esophagitis; R73.9 Hyperglycemia, unspecified; Z62.810 Personal history of physical and sexual abuse in childhood; Z56.0 Unemployment, unspecified; Z59.00 Homelessness unspecified; Z88.8 Allergy status to other drugs, medicaments and biological substances; Z88.5 Allergy status to narcotic agent; Z91.014 Allergy to mammalian meats
CPT/HCPCS: 36415; 80053; 82947; 83036; 84132; 85027; 86780; 87811; 93005; 93010; C9803-CS; Q0162; U0003; U0005

== ENCOUNTER 2022-01-27 11:52 | Inpatient (IN) | payer OTHER ==
[2022-01-27] MEDS ORDERED: LOPERAMIDE HCL 2 MG CAPSULE PO PRN (12:59)
[2022-01-27] MEDS ORDERED: ACETAMINOPHEN 325 MG TABLET (FP) PO PRN (12:59)
[2022-01-27] MEDS ORDERED: MAGNESIUM CITRATE 300 ML BOTTLE PO PRN (12:59)
[2022-01-27] MEDS ORDERED: MAGNESIUM HYDROX 2400MG/30ML ORAL SUSPENSION 30 ML CUP PO PRN (12:59)
[2022-01-27] MEDS ORDERED: P-EPHED 60MG/TRIPROLIDI 2.5MG TABLET PO PRN (12:59)
[2022-01-27] MEDS ORDERED: NICOTINE 10 MG CARTRIDGE (INHALER) IH PRN (12:59)
[2022-01-27] MEDS ORDERED: guaiFENesin 200 MG/10 ML 10 ML UNIT-DOSE CUPS PO PRN (12:59)
[2022-01-27] MEDS ORDERED: MAG HYDROX/AL HYDROX/SIMETH 30 ML UNIT-DOSE CUP PO PRN (12:59)
[2022-01-27] MEDS ORDERED: IBUPROFEN 400 MG TABLET (FP) PO PRN (12:59)
[2022-01-27] MEDS ORDERED: BENZOCAINE/MENTHOL (CHLORASEPTIC ) LOZENGE MM PRN (12:59)
[2022-01-27] MEDS ORDERED: hydrOXYzine PAMOATE 25 MG CAPSULE (FP) PO PRN (12:59)
[2022-01-27] MEDS: TOPIRAMATE 100 MG TABLET PO SCH (21:30)
[2022-01-27] MEDS: MELATONIN 5 MG TABLETS PO SCH (21:30)
[2022-01-27] MEDS: THIAMINE HCL 100 MG TABLET (FP) PO SCH (21:30)
[2022-01-27] MEDS: OLANZapine 10 MG TABLET PO SCH (21:31)
[2022-01-27] MEDS: QUEtiapine FUMARATE 50 MG TABLET PO SCH (21:31)
[2022-01-28] MEDS: TOPIRAMATE 100 MG TABLET PO SCH ×2 (09:57→21:15)
[2022-01-28] MEDS: PANTOPRAZOLE 40 MG TABLET PO SCH (09:57)
[2022-01-28] MEDS: NICOTINE 7 MG/24 HOURS TOPICAL PATCH TD SCH (09:57)
[2022-01-28] MEDS: PRENATAL VITAMINS W/ FOLIC ACID TABLET (FP) PO SCH (09:57)
[2022-01-28] MEDS: OLANZapine 10 MG TABLET PO SCH ×2 (09:57→21:15)
[2022-01-28] MEDS: QUEtiapine FUMARATE 50 MG TABLET PO SCH (21:15)
[2022-01-28] MEDS: MELATONIN 5 MG TABLETS PO SCH (21:15)
[2022-01-28] MEDS: THIAMINE HCL 100 MG TABLET (FP) PO SCH (21:16)
[2022-01-29 06:49] VITALS: BP 109/64; PULSE 66; TEMP 97.5
[2022-01-29] MEDS: TOPIRAMATE 100 MG TABLET PO SCH (10:32)
[2022-01-29] MEDS: PRENATAL VITAMINS W/ FOLIC ACID TABLET (FP) PO SCH (10:32)
[2022-01-29] MEDS: OLANZapine 10 MG TABLET PO SCH (10:33)
[2022-01-29] MEDS: PANTOPRAZOLE 40 MG TABLET PO SCH (10:54)
[2022-01-29] MEDS: NICOTINE 7 MG/24 HOURS TOPICAL PATCH TD SCH (10:54)
== END 2022-01-29 12:01 | disposition left against medical advice (07) | DRG 770 ==
LOC: YASAS 11:52 → Y3W 11:53
PROVIDERS: ADMIT Allergy & Immunology; ATTEND Psychiatry & Neurology Pain Medicine
PROC: HZ42ZZZ Group Counseling for Substance Abuse Treatment, Cognitive-Behavioral (ICD-10-PCS; principal; 2022-01-27)
DX: F10.20 Alcohol dependence, uncomplicated (principal); F14.20 Cocaine dependence, uncomplicated; F31.9 Bipolar disorder, unspecified; F17.210 Nicotine dependence, cigarettes, uncomplicated; K21.9 Gastro-esophageal reflux disease without esophagitis; Z88.5 Allergy status to narcotic agent; Z88.8 Allergy status to other drugs, medicaments and biological substances; Z91.014 Allergy to mammalian meats; Z59.00 Homelessness unspecified